=== PATIENT | female | born 1970 | race Caucasian/White ===

== ENCOUNTER 2022-07-15 23:42 | Inpatient (IN) | payer OTHER, SELFPAY ==
[2022-07-15 23:53] VITALS: BP 138/74; BP 148/96; PULSE 79; PULSE 95; RESP 18; TEMP 36.8; O2SAT 96; O2SAT 97; BMI 46.6
--- NOTE | 2022-07-16 00:04 | ED_ITS ---
HPI - Psych General Chief Complaint: Psychiatric Symptoms Stated Complaint: si Source: patient Mode of arrival: EMS Limitations: no limitations History of Present Illness HPI Narrative: Patient with history of PTSD cocaine use, depression feeling suicidal with history of self-injurious behavior feeling worthlessness patient is homeless says too much going on in her life and does not want to live anymore Related Data Allergies Allergy/AdvReac Type Severity Reaction Status Date / Time Penicillins AdvReac Hives Verified 07/15/22 23:52 Review of Systems Review of Systems: Yes all other systems are reviewed and are negative [facility] Social History Social History Advance Directives: No Physical Exam Vital Signs: Vital Signs: Last Vital Signs Temp 98.2 F 07/15/22 23:53 Pulse 79 07/15/22 23:53 Resp 18 07/15/22 23:53 BP 138/74 07/15/22 23:53 Pulse Ox 97 07/15/22 23:53 O2 Del Method 07/15/22 23:53 BMI result Body Mass Index 46.6 Appearance: Alert. Oriented X3. No acute distress. Eyes: PERRLA, No Nystagmus ENT: Pharynx normal. Oral Mucosa moist Neck: Normal inspection. Neck supple. CVS: Normal heart rate and rhythm. Pulses normal. Respiratory: No respiratory distress. Equal air entry bilateral, no wheezing/rales/rhonchi Abdomen: Soft and nontender. Bowel sounds are present, no mass palpable, no CVA tenderness Skin: Skin warm and dry. Normal skin color. Normal skin turgor. psych: Depressed mood no active plan, no delusions no hallucinations Extremities: No lower extremity edema. No calf tenderness, No cerebellar signs , cranial nerves II-XII intact MDM - Psych Differential Diagnosis Differential diagnosis: Likely suicidal ideation, bipolar disorder and depressio n Lab Data Attestation: I reviewed the patient's lab results. Result diagrams: 07/16/22 00:21 07/16/22 00:21 Labs: Lab Results 07/16/22 07/16/22 07/16/22 Range/Units 00:21 00:21 00:21 WBC 9.8 (4.8-10.8) X10*3/uL RBC 4.36 (4.20-5.50) X10*6/uL Hgb 11.4 L (12.0-16.0) g/dl Hct 36.0 L (37.0-47.0) % MCV 82.6 (80.0-98.0) fL MCH 26.1 L (27.0-33.0) pg MCHC 31.7 (31.0-35.0) g/dl RDW 14.3 (11.0-16.0) % Plt Count 430 H (160-400) X10*3/uL MPV 10.1 (9.4-12.3) fL Immature Gran % (Auto) 0.2 (0.0-0.4) % Neut % (Auto) 56.3 (45-73) % Lymph % (Auto) 34.9 (20-40) % [place] % (Auto) 7.2 (2-11) % Eos % (Auto) 1.1 (0-4) % Baso % (Auto) 0.3 (0-2) % Lymph # (Auto) 3.4 (1.2-4.9) X10*3/uL [place] # (Auto) 0.7 (0.1-1.2) X10*3/uL Eos # (Auto) 0.1 (0.0-0.4) X10*3/uL Baso # (Auto) 0.0 (0.0-0.2) X10*3/uL Abs Immat Gran (auto) 0.02 (0.00-0.03) X10*3/uL Absolute Neuts (auto) 5.5 (2.0-8.3) x10*3/uL Absolute Nucleated RBC 0.000 (0.0-0.012) X10*3/uL Nucleated RBC % (auto) 0.0 (0.0-0.2) /100WBC Sodium 137 (135-145) mmol/L Potassium 3.9 (3.3-5.1) mmol/L Chloride 104 (96-108) mmol/L Carbon Dioxide 25 (22-29) mmol/L Anion Gap 12 (12-20) BUN 16 (9-16) mg/dL Creatinine 0.76 (0.5-1.4) mg/dL Estim Creat Clear Calc 117.6 Estimated GFR > 60 Random Glucose 88 (60-115) mg/dL Calcium 9.9 (8.4-10.2) mg/dL Total Bilirubin 0.4 (0.0-1.0) mg/dL AST 14 (5-31) U/L ALT 12 (0-31) U/L Alkaline Phosphatase 114 (39-117) U/L Total Protein 6.8 (6.5-8.0) g/dL Albumin 4.0 (3.5-5.0) g/dL Urine Color Yellow Urine Appearance Clear Urine pH 6.0 (5.0-9.0) Ur Specific [place] 1.025 (1.005-1.025) Urine Protein Negative (Neg-Trace) mg/dL Urine Glucose (UA) Negative (Negative) mg/dL Urine Ketones Negative (Negative) mg/dL Urine Blood Negative (Negative) Urine Nitrite Negative (Negative) Ur Leukocyte Esterase Negative (Negative) Urine Opiates Screen (Not Detect) Urine Fentanyl Screen (Not Detect) Ur Barbiturates Screen (Not Detect) Ur Phencyclidine Scrn (Not Detect) Ur Amphetamines Screen (Not Detect) U Benzodiazepines Scrn (Not Detect) Urine Cocaine Screen (Not Detect) U Marijuana (THC) Screen (Not Detect) 07/16/22 Range/Units 00:21 WBC (4.8-10.8) X10*3/uL RBC (4.20-5.50) X10*6/uL Hgb (12.0-16.0) g/dl Hct (37.0-47.0) % MCV (80.0-98.0) fL MCH (27.0-33.0) pg MCHC (31.0-35.0) g/dl RDW (11.0-16.0) % Plt Count (160-400) X10*3/uL MPV (9.4-12.3) fL Immature Gran % (Auto) (0.0-0.4) % Neut % (Auto) (45-73) % Lymph % (Auto) (20-40) % [place] % (Auto) (2-11) % Eos % (Auto) (0-4) % Baso % (Auto) (0-2) % Lymph # (Auto) (1.2-4.9) X10*3/uL [place] # (Auto) (0.1-1.2) X10*3/uL Eos # (Auto) (0.0-0.4) X10*3/uL Baso # (Auto) (0.0-0.2) X10*3/uL Abs Immat Gran (auto) (0.00-0.03) X10*3/uL Absolute Neuts (auto) (2.0-8.3) x10*3/uL Absolute Nucleated RBC (0.0-0.012) X10*3/uL Nucleated RBC % (auto) (0.0-0.2) /100WBC Sodium (135-145) mmol/L Potassium (3.3-5.1) mmol/L Chloride (96-108) mmol/L Carbon Dioxide (22-29) mmol/L Anion Gap (12-20) BUN (9-16) mg/dL Creatinine (0.5-1.4) mg/dL Estim Creat Clear Calc Estimated GFR Random Glucose (60-115) mg/dL Calcium (8.4-10.2) mg/dL Total Bilirubin (0.0-1.0) mg/dL AST (5-31) U/L ALT (0-31) U/L Alkaline Phosphatase (39-117) U/L Total Protein (6.5-8.0) g/dL Albumin (3.5-5.0) g/dL Urine Color Urine Appearance Urine pH (5.0-9.0) Ur Specific [place] (1.005-1.025) Urine Protein (Neg-Trace) mg/dL Urine Glucose (UA) (Negative) mg/dL Urine Ketones (Negative) mg/dL Urine Blood (Negative) Urine Nitrite (Negative) Ur Leukocyte Esterase (Negative) Urine Opiates Screen Not Detected (Not Detect) Urine Fentanyl Screen Not Detected (Not Detect) Ur Barbiturates Screen Not Detected (Not Detect) Ur Phencyclidine Scrn Not Detected (Not Detect) Ur Amphetamines Screen Not Detected (Not Detect) U Benzodiazepines Scrn Not Detected (Not Detect) Urine Cocaine Screen POSITIVE H (Not Detect) U Marijuana (THC) Screen Not Detected (Not Detect) Discharge Plan Discharge Clinical Impression: Suicidal ideation, Bipolar disorder Patient Disposition: Still a Patient
--- NOTE | 2022-07-16 00:10 | PC.NURSE ---
pt got change into hospital attire ,by this pct .
[2022-07-16 00:27] LABS: Basophils Percent Auto 0.3 % (0-2); Eosinophils Absolute Auto 0.1 X10*3/uL (0.0-0.4); Eosinophils Percent Auto 1.1 % (0-4); Hemoglobin 11.4 g/dl (12.0-16.0); Imm Gran Abs Auto 0.02 X10*3/uL (0.00-0.03); Imm Gran Pct Auto 0.2 % (0.0-0.4); Lymphocytes Absolute Auto 3.4 X10*3/uL (1.2-4.9); Lymphocytes Percent Auto 34.9 % (20-40); Mean Corpuscular HGB Conc 31.7 g/dl (31.0-35.0); Mean Corpuscular Hemoglobin 26.1 pg (27.0-33.0); Mean Corpuscular Volume 82.6 fL (80.0-98.0); Mean Platelet Volume 10.1 fL (9.4-12.3); Monocytes Absolute Auto 0.7 X10*3/uL (0.1-1.2); Monocytes Percent Auto 7.2 % (2-11); Neutrophils Absolute Auto 5.5 x10*3/uL (2.0-8.3); Neutrophils Percent Auto 56.3 % (45-73); Platelet Count 430 X10*3/uL (160-400); Red Blood Count 4.36 X10*6/uL (4.20-5.50); Red Cell Distribution Width 14.3 % (11.0-16.0); White Blood Count 9.8 X10*3/uL (4.8-10.8)
[2022-07-16 00:28] LABS: MANUAL DIFF FLAG NO
[2022-07-16 00:29] LABS: Appearance Urine Clear; Color Urine Yellow; Glucose Urine UA Negative (Negative); Leukocyte Esterase Urine Negative (Negative); Nitrite Urine Negative (Negative); Specific Gravity - Urine 1.025 (1.005-1.025); Urine Blood Negative (Negative); Urine Ketones Negative (Negative); Urine Protein Negative (Neg-Trace)
[2022-07-16 00:38] LABS: Amphetamine Screen Urine Not Detected (Not Detect); Barbiturates, Urine Not Detected (Not Detect); Benzodiazepines Screen Urine Not Detected (Not Detect); Cannabinoid Screen Urine Not Detected (Not Detect); Cocaine Screen Urine POSITIVE (Not Detect); Fentanyl, urine Not Detected (Not Detect); Opiate Screen Urine Not Detected (Not Detect); Phencyclidine Screen Urine Not Detected (Not Detect)
[2022-07-16 00:47] LABS: Alanine Aminotransferase 12 U/L (0-31); Alkaline Phosphatase 114 U/L (39-117); Anion Gap 12 (12-20); Aspartate Amino Transferase 14 U/L (5-31); Bilirubin Total 0.4 mg/dL (0.0-1.0); Blood Urea Nitrogen 16 mg/dL (9-16); Calcium 9.9 mg/dL (8.4-10.2); Carbon Dioxide 25 mmol/L (22-29); Chloride 104 mmol/L (96-108); Creatinine Clr Calc Pharmacy 117.6; Estimated Glomerular Filt Rate > 60; Glucose Random 88 mg/dL (60-115); Potassium 3.9 mmol/L (3.3-5.1); Sodium 137 mmol/L (135-145); Total Protein 6.8 g/dL (6.5-8.0)
[2022-07-16 01:04] LABS: Influenza A PCR NEGATIVE (Negative); Influenza B PCR NEGATIVE (Negative); Resp Syncy Virus RNA Qual PCR NEGATIVE (Negative); SARS COV2 PCR INHOUSE NEGATIVE (Negative)
[2022-07-16 02:43] VITALS: BP 143/69; PULSE 77; RESP 16; TEMP 36.1; O2SAT 98
[2022-07-16] MEDS: Ibuprofen 400 MG TABLET PO (03:52)
[2022-07-16] MEDS: Melatonin 3 MG TABLET 6 MG PO (03:53)
--- NOTE | 2022-07-16 08:45 | PHA.MEDREC ---
Pharmacy Consult ? Medication Reconciliation Pharmacy has completed the medication reconciliation. Completed by RN reviewed by pharmacy Fili
--- NOTE | 2022-07-16 09:00 | ECG_ITS ---
Test Reason : med clearance Blood Pressure : / mmHG Vent. Rate : 066 BPM Atrial Rate : 066 BPM P-R Int : 146 ms QRS Dur : 096 ms QT Int : 420 ms P-R-T Axes : 062 -07 -18 degrees QTc Int : 440 ms Normal sinus rhythm Minimal voltage criteria for LVH, may be normal variant ( Diego product ) T wave abnormality, consider anterior ischemia Abnormal ECG No previous ECGs available Referred By: Devaughn Black Electronically Signed By:Jorge Chavez
[2022-07-16 09:59] VITALS: BP 105/74; PULSE 88; RESP 18; TEMP 36.9; O2SAT 96
[2022-07-16 10:15] VITALS: BP 141/67; PULSE 66; RESP 14; O2SAT 98
--- NOTE | 2022-07-16 15:31 | PC.NURSE ---
Wai at bedside to take pt to [id number]
[2022-07-16 16:49] VITALS: BP 127/65; PULSE 65; TEMP 36.6
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
[2022-07-17 06:00] VITALS: BP 97/53; PULSE 75; RESP 14; TEMP 36.6; O2SAT 97
[2022-07-17] MEDS: DULoxetine HCl 60 MG CAPSULE.DR PO (08:18)
[2022-07-17] MEDS: Cholecalciferol (Vitamin D3) 25 MCG TABLET PO (08:18)
[2022-07-17] MEDS: estradioL 0.5 MG TABLET PO (08:18)
[2022-07-17] MEDS: polyethylene glycoL 3350 17 GM POWD.PACK PO (08:21)
[2022-07-17 08:28] LABS: Estimated Average Glucose 111 mg/dL; Hemoglobin A1c % 5.5 %
[2022-07-17 09:00] LABS: Cholesterol 204 mg/dL; Free T4 (Free Thyroxine) 0.98 ng/dL (0.71-1.85); HDL Cholesterol 42 mg/dL; LDL Cholesterol Calculated 114 mg/dl; Magnesium 2.1 mg/dL (1.6-2.6); Triglycerides 242 mg/dL
[2022-07-17 09:13] LABS: Folate 4.9 ng/mL (> or = 4.0); Vitamin B12 233 pg/mL (200-900)
[2022-07-17 18:00] VITALS: BP 130/77; PULSE 79; RESP 18; TEMP 36.6; O2SAT 97
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
[2022-07-17] MEDS: Acetaminophen 325 MG TABLET 650 MG PO (20:13)
[2022-07-17] MEDS: traZODone HCL 50 MG TABLET PO (22:11)
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
[2022-07-18 08:48] VITALS: BP 124/71; PULSE 76; RESP 18; TEMP 37.1; O2SAT 96
[2022-07-18] MEDS: estradioL 0.5 MG TABLET PO (08:49)
[2022-07-18] MEDS: Cyanocobalamin (Vitamin B-12) 100 MCG TABLET PO (08:49)
[2022-07-18] MEDS: Omeprazole 20 MG CAPSULE.DR PO (08:49)
[2022-07-18] MEDS: Acetaminophen 325 MG TABLET 650 MG PO ×2 (08:49→18:51)
[2022-07-18] MEDS: buPROPion HCl XL 300 MG TAB.ER.24H PO (08:49)
[2022-07-18] MEDS: Loratadine 10 MG TABLET PO (08:50)
[2022-07-18] MEDS: Cholecalciferol (Vitamin D3) 25 MCG TABLET PO (08:50)
[2022-07-18] MEDS: DULoxetine HCl 60 MG CAPSULE.DR PO (08:50)
[2022-07-18] MEDS: Multivitamin TABLET 1 TAB PO (08:54)
[2022-07-18] MEDS: polyethylene glycoL 3350 17 GM POWD.PACK PO (09:00)
[2022-07-18 18:38] VITALS: BP 116/66; PULSE 84; RESP 20; TEMP 36.9; O2SAT 97
[2022-07-19] MEDS: hydrOXYzine HCL 50 MG TABLET PO ×2 (00:19→22:14)
[2022-07-19 06:00] VITALS: BP 116/65; PULSE 82; RESP 16
--- NOTE | 2022-07-19 06:39 | P.PNPSI_ITS ---
Subjective Subjective Date of Service: 07/18/22 Reason For Visit: si, bipolar d/o Subjective Notes: Conditional Voluntary Healthcare Proxy: No Guardianship: No Medical Problems Affecting Mental Status: No Interim History: Pt not willing to engage much, says didn't sleep so excessively tired reports trazodone didn't work was on more in past but when discussed pt said already dizzy/light headed I am concerned about further increase, pt reported that hydroxzyine worked in past Medication Compliance: Yes Side effects from medications: Yes (dizzy light headed) Attending Groups: Intermittent Review of Systems Acute medical concerns: No Review of Systems: fatigue, dizziness/lightheaded Mental Status Exam Mental Status Exam Narrative: lying in bed, drowsy, minimally cooperative Patient Appearance: Fatigued Patient Orientation: Person, Place and Situation Level of Consciousness: Drowsy Patient Behavior: Passive and Isolative Mood Description: Calm Affect Description: Apathetic Patient Cognition Impaired: No Ability to Follow Directions: Fair Speech Pattern: Mumbled Hallucinations: None Delusions: Not Present Thought Process: Intact Thought Content: positive for Goal Oriented Depressive Symptoms: Difficulty Sleeping and Increased Fatigue Abnormal Motor Activity Signs and Symptoms: Psychomotor Retardation Judgement: Fair Diagnostics Vital Signs (24Hr): Vital Signs - 24 hr 07/18/22 08:48 07/18/22 18:38 Temperature 98.8 F 98.5 F Pulse Rate 76 84 Respiratory Rate 18 20 Blood Pressure 124/71 116/66 Pulse Oximetry 96 97 Oxygen Delivery Method Room Air Room Air BMI result Body Mass Index 46.6 Labs Results: 07/16/22 00:21 07/16/22 00:21 Labs: Laboratory Results - last 48 hr 07/17/22 07/17/22 07/17/22 08:08 08:08 08:08 Estimat Average Glucose 111 Hemoglobin A1c % 5.5 Magnesium 2.1 Triglycerides 242 Cholesterol 204 LDL Cholesterol, Calc 114 HDL Cholesterol 42 Vitamin B12 233 Folate 4.9 TSH 3.30 Free T4 0.98 Medications Medications Current Medications Acetaminophen (Acetaminophen 325 Mg Tablet) 650 mg PO Q6H PRN PRN Reason: Headache/Pain Mild Scale (1-3) Last Admin: 07/18/22 18:51 Dose: 650 mg Al Hydroxide/Mg Hydroxide (Magnesium Hydrox/Alum Hydrox 30 Ml Oral.Susp) 30 ml PO Q6H PRN PRN Reason: Heartburn/Nausea Bupropion HCl (Bupropion Hcl Xl 300 Mg Tab.Er.24h) 300 mg PO DAILY [facility] Last Admin: 07/18/22 08:49 Dose: 300 mg Cyanocobalamin (Cyanocobalamin (Vitamin B-12) 100 Mcg Tablet) 100 mcg PO DAILY [facility] Last Admin: 07/18/22 08:49 Dose: 100 mcg Duloxetine HCl (Duloxetine Hcl 60 Mg Capsule.) 60 mg PO DAILY [facility] Last Admin: 07/18/22 08:50 Dose: 60 mg Estradiol (Estradiol 0.5 Mg Tablet) 0.5 mg PO DAILY [facility] Last Admin: 07/18/22 08:49 Dose: 0.5 mg Hydroxyzine HCl (Hydroxyzine Hcl 25 Mg Tablet) 25 mg PO Q6H PRN PRN Reason: Anxiety Hydroxyzine HCl (Hydroxyzine Hcl 50 Mg Tablet) 50 mg PO BEDTIME MRX1 PRN PRN Reason: Insomnia Last Admin: 07/19/22 00:19 Dose: 50 mg Loratadine (Loratadine 10 Mg Tablet) 10 mg PO DAILY [facility] Last Admin: 07/18/22 08:50 Dose: 10 mg Magnesium Hydroxide (Milk Of Magnesia 30 Ml Oral.Susp) 30 ml PO DAILY PRN PRN Reason: Constipation Multivitamins/Vitamin C (Multivitamin Tablet) 1 tab PO DAILY [facility] Last Admin: 07/18/22 08:54 Dose: 1 tab Omeprazole (Omeprazole 20 Mg Capsule.) 20 mg PO DAILY@0630 [facility] Last Admin: 07/18/22 08:49 Dose: 20 mg Pharmacy Consult (Consult Rx Perform Med Rec) 1 each MISCELLANE ONCE PRN PRN Reason: Consult order Polyethylene Glycol (Polyethylene Glycol 3350 17 Gm Powd.Pack) 17 gm PO DAILY [facility] Last Admin: 07/18/22 09:00 Dose: 17 gm Vitamin D (Cholecalciferol (Vitamin D3) 25 Mcg Tablet) 25 mcg PO DAILY [facility] Last Admin: 07/18/22 08:50 Dose: 25 mcg Allergies Allergies Allergy/AdvReac Type Severity Reaction Status Date / Time Penicillins AdvReac Hives Verified 07/15/22 23:52 Assessment & Plan Assessment & Plan (1) PTSD (post-traumatic stress disorder): Status: Acute Code(s): F43.10 - Post-traumatic stress disorder, unspecified Assessment and Plan: changed trazodone to hydroxyzine for sleep 07/18 (2) Stimulant use disorder: Status: Acute Code(s): F15.90 - Other stimulant use, unspecified, uncomplicated Assessment and Plan: could be fatigued from this as well (3) Alcohol use disorder: Status: Acute Code(s): F19.90 - Other psychoactive substance use, unspecified, uncomplicated Assessment and Plan: awaiting placement Plan 52 yo female, reports stopping meds, relapse with SIBS and increasing SI. Plan: Review of meds, regime restored, allow to take effect. Pt reports, by history this regime as worked well. Collateral contact Diagnostics as needed Pt reports she is not intersted at this time in residential level of care. Continue to discuss. I spent minutes with the patient and/or on the patient floor today, greater than?50% of which was spent counseling/coordinating care. Patient educated on: medication risk/benefits Informed Consent: understands Reason for contiued inpatient stay Substantial Risk for: harm to self and rapid decompensation
[2022-07-19] MEDS: Omeprazole 20 MG CAPSULE.DR PO (09:01)
[2022-07-19] MEDS: buPROPion HCl XL 300 MG TAB.ER.24H PO (09:01)
[2022-07-19] MEDS: estradioL 0.5 MG TABLET PO (09:01)
[2022-07-19] MEDS: Multivitamin TABLET 1 TAB PO (09:01)
[2022-07-19] MEDS: DULoxetine HCl 60 MG CAPSULE.DR PO (09:01)
[2022-07-19] MEDS: polyethylene glycoL 3350 17 GM POWD.PACK PO (09:01)
[2022-07-19] MEDS: Loratadine 10 MG TABLET PO (09:01)
[2022-07-19] MEDS: Cholecalciferol (Vitamin D3) 25 MCG TABLET PO (09:01)
[2022-07-19] MEDS: Cyanocobalamin (Vitamin B-12) 100 MCG TABLET PO (09:01)
--- NOTE | 2022-07-19 11:05 | P.PNPSI_ITS ---
Subjective Subjective Date of Service: 07/19/22 Reason For Visit: si, bipolar d/o Subjective Notes: Conditional Voluntary Healthcare Proxy: No Guardianship: No Medical Problems Affecting Mental Status: No Interim History: Not very engaged in treatment, she reports due to fatigue, not sleeping and .. dizziness? , still continues but less off trazodone. Denies drug/etoh cravings or current si. Medication Compliance: Yes Side effects from medications: Yes (dizziness) Attending Groups: No Review of Systems Acute medical concerns: No unless dizziness/fatigue are medical concern but not clear Review of Systems: dizziness ,fatigue Mental Status Exam Mental Status Exam Patient Appearance: Disheveled (mildly) and Appropriate Patient Orientation: Person, Place, Time and Situation Level of Consciousness: Awake, Appropriate and Alert Patient Behavior: Cooperative, Avoidant and Isolative Mood Description: Anxious Affect Description: Appropriate Patient Cognition Impaired: No Ability to Follow Directions: Fair Speech Pattern: Clear Hallucinations: None Delusions: Not Present Thought Process: Intact and Goal Oriented Thought Content: positive for [place] Depressive Symptoms: Muscle Tension, Difficulty Sleeping, Increased Fatigue and Loss of Energy Judgement: Fair Diagnostics Vital Signs (24Hr): Vital Signs - 24 hr 07/18/22 18:38 07/19/22 06:00 Temperature 98.5 F Pulse Rate 84 82 Respiratory Rate 20 16 Blood Pressure 116/66 116/65 Pulse Oximetry 97 Oxygen Delivery Method Room Air BMI result Body Mass Index 46.6 Labs Results: 07/16/22 00:21 07/16/22 00:21 Medications Medications Current Medications Acetaminophen (Acetaminophen 325 Mg Tablet) 650 mg PO Q6H PRN PRN Reason: Headache/Pain Mild Scale (1-3) Last Admin: 07/18/22 18:51 Dose: 650 mg Al Hydroxide/Mg Hydroxide (Magnesium Hydrox/Alum Hydrox 30 Ml Oral.Susp) 30 ml PO Q6H PRN PRN Reason: Heartburn/Nausea Bupropion HCl (Bupropion Hcl Xl 300 Mg Tab.Er.24h) 300 mg PO DAILY [facility] Last Admin: 07/19/22 09:01 Dose: 300 mg Cyanocobalamin (Cyanocobalamin (Vitamin B-12) 100 Mcg Tablet) 100 mcg PO DAILY [facility] Last Admin: 07/19/22 09:01 Dose: 100 mcg Duloxetine HCl (Duloxetine Hcl 60 Mg Capsule.Dr) 60 mg PO DAILY [facility] Last Admin: 07/19/22 09:01 Dose: 60 mg Estradiol (Estradiol 0.5 Mg Tablet) 0.5 mg PO DAILY [facility] Last Admin: 07/19/22 09:01 Dose: 0.5 mg Hydroxyzine HCl (Hydroxyzine Hcl 25 Mg Tablet) 25 mg PO Q6H PRN PRN Reason: Anxiety Hydroxyzine HCl (Hydroxyzine Hcl 50 Mg Tablet) 50 mg PO BEDTIME MRX1 PRN PRN Reason: Insomnia Last Admin: 07/19/22 00:19 Dose: 50 mg Loratadine (Loratadine 10 Mg Tablet) 10 mg PO DAILY [facility] Last Admin: 07/19/22 09:01 Dose: 10 mg Magnesium Hydroxide (Milk Of Magnesia 30 Ml Oral.Susp) 30 ml PO DAILY PRN PRN Reason: Constipation Multivitamins/Vitamin C (Multivitamin Tablet) 1 tab PO DAILY [facility] Last Admin: 07/19/22 09:01 Dose: 1 tab Omeprazole (Omeprazole 20 Mg Capsule.Dr) 20 mg PO DAILY@0630 [facility] Last Admin: 07/19/22 09:01 Dose: 20 mg Pharmacy Consult (Consult Rx Perform Med Rec) 1 each MISCELLANE ONCE PRN PRN Reason: Consult order Polyethylene Glycol (Polyethylene Glycol 3350 17 Gm Powd.Pack) 17 gm PO DAILY [facility] Last Admin: 07/19/22 09:01 Dose: 17 gm Vitamin D (Cholecalciferol (Vitamin D3) 25 Mcg Tablet) 25 mcg PO DAILY [facility] Last Admin: 07/19/22 09:01 Dose: 25 mcg Allergies Allergies Allergy/AdvReac Type Severity Reaction Status Date / Time Penicillins AdvReac Hives Verified 07/15/22 23:52 Assessment & Plan Assessment & Plan (1) PTSD (post-traumatic stress disorder): Status: Acute Code(s): F43.10 - Post-traumatic stress disorder, unspecified Assessment and Plan: changed trazodone to hydroxyzine for sleep 07/18 07/19 adding melatonin (2) Stimulant use disorder: Status: Acute Code(s): F15.90 - Other stimulant use, unspecified, uncomplicated Assessment and Plan: could be fatigued from this as well (3) Alcohol use disorder: Status: Acute Code(s): F19.90 - Other psychoactive substance use, unspecified, uncomplicated Assessment and Plan: awaiting placement Plan 52 yo female, reports stopping meds, relapse with SIBS and increasing SI. Plan: Review of meds, regime restored, allow to take effect. Pt reports, by history this regime as worked well. Collateral contact Diagnostics as needed Pt reports she is not intersted at this time in residential level of care. Continue to discuss. I spent minutes with the patient and/or on the patient floor today, greater than?50% of which was spent counseling/coordinating care. Patient educated on: diagnosis and medication risk/benefits Informed Consent: further education needed Reason for contiued inpatient stay Substantial Risk for: rapid decompensation
[2022-07-19 18:00] VITALS: BP 138/84; PULSE 90; TEMP 36.7; O2SAT 95
[2022-07-19] MEDS: Acetaminophen 325 MG TABLET 650 MG PO (20:18)
[2022-07-19] MEDS: Ibuprofen 600 MG TABLET PO (22:14)
[2022-07-19] MEDS: Melatonin 3 MG TABLET PO (22:14)
[2022-07-20] MEDS: Omeprazole 20 MG CAPSULE.DR PO (06:30)
[2022-07-20 08:45] VITALS: BP 115/55; PULSE 71; RESP 16; TEMP 37.3; O2SAT 96
[2022-07-20] MEDS: Cyanocobalamin (Vitamin B-12) 100 MCG TABLET PO (09:00)
[2022-07-20] MEDS: buPROPion HCl XL 300 MG TAB.ER.24H PO (09:00)
[2022-07-20] MEDS: Cholecalciferol (Vitamin D3) 25 MCG TABLET PO (09:00)
[2022-07-20] MEDS: DULoxetine HCl 60 MG CAPSULE.DR PO (09:00)
[2022-07-20] MEDS: estradioL 0.5 MG TABLET PO (09:00)
[2022-07-20] MEDS: Multivitamin TABLET 1 TAB PO (09:01)
[2022-07-20] MEDS: Loratadine 10 MG TABLET PO (09:01)
[2022-07-20 15:45] VITALS: BP 124/71; PULSE 87; TEMP 36.3
--- NOTE | 2022-07-20 18:12 | HO.PSYCHPN ---
Subjective Subjective Date of Service: 07/20/22 Reason For Visit: si, bipolar d/o Subjective Notes: Conditional Voluntary Healthcare Proxy: No Guardianship: No Medical Problems Affecting Mental Status: No Interim History: Some improvement although continues with vertigo. Review of medications, target sx, SE. Hydroxyzine at hs decreased as pt has hx of unsteadiness but finds this to be helpful with her sleep. Asks about residential treatment post discharge, [facility] Medication Compliance: Yes Side effects from medications: Yes (dizziness with hydroxyzine, yet reports efficacy) Attending Groups: Intermittent Review of Systems Acute medical concerns: No Medical Review of Systems: unchanged Mental Status Exam Mental Status Exam Patient Appearance: Appropriate Patient Orientation: Person, Place, Time and Situation Level of Consciousness: Alert Patient Behavior: Talkative, Cooperative and Good Eye Contact Mood Description: Labile Affect Description: Labile Patient Cognition Impaired: No Ability to Follow Directions: Good Speech Pattern: Spontaneous Speech Memory Description: Intact Hallucinations: None Delusions: Not Present Thought Process: Rumination and Goal Oriented Thought Content: positive for Circumstantial Judgement: Fair Diagnostics Vital Signs (24Hr): Vital Signs - 24 hr 07/20/22 08:45 Temperature 99.1 F Pulse Rate 71 Respiratory Rate 16 Blood Pressure 115/55 L Pulse Oximetry 96 Oxygen Delivery Method Room Air BMI result Body Mass Index 46.6 Labs Results: 07/16/22 00:21 07/16/22 00:21 Medications Medications Current Medications Acetaminophen (Acetaminophen 325 Mg Tablet) 650 mg PO Q6H PRN PRN Reason: Headache/Pain Mild Scale (1-3) Last Admin: 07/19/22 20:18 Dose: 650 mg Al Hydroxide/Mg Hydroxide (Magnesium Hydrox/Alum Hydrox 30 Ml Oral.Susp) 30 ml PO Q6H PRN PRN Reason: Heartburn/Nausea Bupropion HCl (Bupropion Hcl Xl 300 Mg Tab.Er.24h) 300 mg PO DAILY [facility] Last Admin: 07/20/22 09:00 Dose: 300 mg Cyanocobalamin (Cyanocobalamin (Vitamin B-12) 100 Mcg Tablet) 100 mcg PO DAILY [facility] Last Admin: 07/20/22 09:00 Dose: 100 mcg Duloxetine HCl (Duloxetine Hcl 60 Mg Capsule.Dr) 60 mg PO DAILY [facility] Last Admin: 07/20/22 09:00 Dose: 60 mg Estradiol (Estradiol 0.5 Mg Tablet) 0.5 mg PO DAILY [facility] Last Admin: 07/20/22 09:00 Dose: 0.5 mg Hydroxyzine HCl (Hydroxyzine Hcl 25 Mg Tablet) 25 mg PO Q6H PRN PRN Reason: Anxiety Hydroxyzine HCl (Hydroxyzine Hcl 25 Mg Tablet) 25 mg PO BEDTIME MRX1 PRN PRN Reason: Insomnia Ibuprofen (Ibuprofen 600 Mg Tablet) 600 mg PO Q6H PRN PRN Reason: Pain, Moderate (Pain Scale 4-6 Last Admin: 07/19/22 22:14 Dose: 600 mg Loratadine (Loratadine 10 Mg Tablet) 10 mg PO DAILY [facility] Last Admin: 07/20/22 09:01 Dose: 10 mg Magnesium Hydroxide (Milk Of Magnesia 30 Ml Oral.Susp) 30 ml PO DAILY PRN PRN Reason: Constipation Melatonin (Melatonin 3 Mg Tablet) 3 mg PO BEDTIME MRX1 [facility] Last Admin: 07/19/22 23:01 Dose: Not Given Multivitamins/Vitamin C (Multivitamin Tablet) 1 tab PO DAILY [facility] Last Admin: 07/20/22 09:01 Dose: 1 tab Omeprazole (Omeprazole 20 Mg Capsule.Dr) 20 mg PO DAILY@0630 [facility] Last Admin: 07/20/22 06:30 Dose: 20 mg Pharmacy Consult (Consult Rx Perform Med Rec) 1 each MISCELLANE ONCE PRN PRN Reason: Consult order Polyethylene Glycol (Polyethylene Glycol 3350 17 Gm Powd.Pack) 17 gm PO DAILY [facility] Last Admin: 07/20/22 10:20 Dose: Not Given Vitamin D (Cholecalciferol (Vitamin D3) 25 Mcg Tablet) 25 mcg PO DAILY [facility] Last Admin: 07/20/22 09:00 Dose: 25 mcg Allergies Allergies Allergy/AdvReac Type Severity Reaction Status Date / Time Penicillins AdvReac Hives Verified 07/15/22 23:52 Assessment & Plan Assessment & Plan (1) PTSD (post-traumatic stress disorder): Status: Acute Code(s): F43.10 - Post-traumatic stress disorder, unspecified Assessment and Plan: changed trazodone to hydroxyzine for sleep 07/18 07/19 adding melatonin (2) Stimulant use disorder: Status: Acute Code(s): F15.90 - Other stimulant use, unspecified, uncomplicated Assessment and Plan: could be fatigued from this as well (3) Alcohol use disorder: Status: Acute Code(s): F19.90 - Other psychoactive substance use, unspecified, uncomplicated Assessment and Plan: awaiting placement Plan 52 yo female, reports stopping meds, relapse with SIBS and increasing SI. Plan: Review of meds, regime restored, allow to take effect. Pt reports, by history this regime as worked well. Collateral contact Diagnostics as needed Pt reports she is not intersted at this time in residential level of care. Continue to discuss. 07/20/22: Continue current regime Decrease of HS hydroxyzine from 50 mg to 25 mg as pt has a hx of vertigo, dizziness, but finds it an effective sleep agent. I spent minutes with the patient and/or on the patient floor today, greater than?50% of which was spent counseling/coordinating care. Patient educated on: therapeutic strategies Informed Consent: understands and further education needed Reason for contiued inpatient stay Substantial Risk for: rapid decompensation
[2022-07-20] MEDS: hydrOXYzine HCL 25 MG TABLET PO (23:02)
[2022-07-20] MEDS: Ibuprofen 600 MG TABLET PO (23:02)
[2022-07-20] MEDS: Melatonin 3 MG TABLET PO (23:03)
[2022-07-21] MEDS: Omeprazole 20 MG CAPSULE.DR PO (06:44)
[2022-07-21 09:15] VITALS: BP 126/61; PULSE 84; RESP 18; TEMP 36; O2SAT 93
[2022-07-21] MEDS: Loratadine 10 MG TABLET PO (09:22)
[2022-07-21] MEDS: Cholecalciferol (Vitamin D3) 25 MCG TABLET PO (09:22)
[2022-07-21] MEDS: Multivitamin TABLET 1 TAB PO (09:22)
[2022-07-21] MEDS: Cyanocobalamin (Vitamin B-12) 100 MCG TABLET PO (09:22)
[2022-07-21] MEDS: buPROPion HCl XL 300 MG TAB.ER.24H PO (09:22)
[2022-07-21] MEDS: DULoxetine HCl 60 MG CAPSULE.DR PO (09:22)
[2022-07-21] MEDS: estradioL 0.5 MG TABLET PO (09:22)
[2022-07-21] MEDS: Acetaminophen 325 MG TABLET 650 MG PO (09:53)
[2022-07-21] MEDS: Ibuprofen 600 MG TABLET PO (14:39)
--- NOTE | 2022-07-21 14:49 | PC.NURSE ---
Patient reporting chronic headache, dizziness, nausea since arrival, attributes this to Vistaril- provider notified.
--- NOTE | 2022-07-21 14:50 | P.PNPSI_ITS ---
Subjective Subjective Date of Service: 07/21/22 Reason For Visit: si, bipolar d/o Interim History: Mood is little better; no SI or HI or AVH. Patient says she has been having headache however ibuprofen helping. Discussed withdrawal, substance abuse. Reports trouble falling asleep and agrees to trial of clonidine at bedtime. Feels that hydroxyzine is causing her to be nauseous and asked for to the discontinued to which news writer agreed. Mental Status Exam Mental Status Exam Narrative: Pt is alert and oriented; behavior is cooperative, friendly and calm, lying in bed; patient reports headache but otherwise not in distress; dressed in casual attire with adequate hygiene; mood is described as a little better and affect congruent; eye contact appropriate; Speech is normal rate, volume and prosody and not pressured; no psychomotor agitation/retardation present; thought process is organized and goal directed; Thought content is on tx, getting over withdrawal; otherwise pertinent to relevant topics and without any delusional content, paranoid ideations or grandiosity; denies any SI/HI. There is no evidence of perceptual disturbance. Patients insight and judgment appear intact. Diagnostics Vital Signs (24Hr): Vital Signs - 24 hr 07/20/22 15:45 07/21/22 09:15 Temperature 97.4 F 96.8 F Pulse Rate 87 84 Respiratory Rate 18 Blood Pressure 124/71 126/61 Pulse Oximetry 93 Oxygen Delivery Method Room Air BMI result Body Mass Index 46.6 Labs Results: 07/16/22 00:21 07/16/22 00:21 Medications Medications Current Medications Acetaminophen (Acetaminophen 325 Mg Tablet) 650 mg PO Q6H PRN PRN Reason: Headache/Pain Mild Scale (1-3) Last Admin: 07/21/22 09:53 Dose: 650 mg Al Hydroxide/Mg Hydroxide (Magnesium Hydrox/Alum Hydrox 30 Ml Oral.Susp) 30 ml PO Q6H PRN PRN Reason: Heartburn/Nausea Bupropion HCl (Bupropion Hcl Xl 300 Mg Tab.Er.24h) 300 mg PO DAILY [facility] Last Admin: 07/21/22 09:22 Dose: 300 mg Cyanocobalamin (Cyanocobalamin (Vitamin B-12) 100 Mcg Tablet) 100 mcg PO DAILY [facility] Last Admin: 07/21/22 09:22 Dose: 100 mcg Duloxetine HCl (Duloxetine Hcl 60 Mg Capsule.Dr) 60 mg PO DAILY [facility] Last Admin: 07/21/22 09:22 Dose: 60 mg Estradiol (Estradiol 0.5 Mg Tablet) 0.5 mg PO DAILY [facility] Last Admin: 07/21/22 09:22 Dose: 0.5 mg Ibuprofen (Ibuprofen 600 Mg Tablet) 600 mg PO Q6H PRN PRN Reason: Pain, Moderate (Pain Scale 4-6 Last Admin: 07/21/22 14:39 Dose: 600 mg Loratadine (Loratadine 10 Mg Tablet) 10 mg PO DAILY [facility] Last Admin: 07/21/22 09:22 Dose: 10 mg Magnesium Hydroxide (Milk Of Magnesia 30 Ml Oral.Susp) 30 ml PO DAILY PRN PRN Reason: Constipation Melatonin (Melatonin 3 Mg Tablet) 3 mg PO BEDTIME MRX1 [facility] Last Admin: 07/21/22 06:32 Dose: Not Given Multivitamins/Vitamin C (Multivitamin Tablet) 1 tab PO DAILY [facility] Last Admin: 07/21/22 09:22 Dose: 1 tab Omeprazole (Omeprazole 20 Mg Capsule.Dr) 20 mg PO DAILY@0630 [facility] Last Admin: 07/21/22 06:44 Dose: 20 mg Pharmacy Consult (Consult Rx Perform Med Rec) 1 each MISCELLANE ONCE PRN PRN Reason: Consult order Polyethylene Glycol (Polyethylene Glycol 3350 17 Gm Powd.Pack) 17 gm PO DAILY [facility] Last Admin: 07/21/22 09:44 Dose: Not Given Vitamin D (Cholecalciferol (Vitamin D3) 25 Mcg Tablet) 25 mcg PO DAILY [facility] Last Admin: 07/21/22 09:22 Dose: 25 mcg Allergies Allergies Allergy/AdvReac Type Severity Reaction Status Date / Time Penicillins AdvReac Hives Verified 07/15/22 23:52 Assessment & Plan Assessment & Plan (1) PTSD (post-traumatic stress disorder): Status: Acute Code(s): F43.10 - Post-traumatic stress disorder, unspecified Assessment and Plan: changed trazodone to hydroxyzine for sleep 07/18 12 adding melatonin (2) Stimulant use disorder: Status: Acute Code(s): F15.90 - Other stimulant use, unspecified, uncomplicated Assessment and Plan: could be fatigued from this as well (3) Alcohol use disorder: Status: Acute Code(s): F19.90 - Other psychoactive substance use, unspecified, uncomplicated Assessment and Plan: awaiting placement Plan 52 yo female, reports stopping meds, relapse with SIBS and increasing SI. Plan: Review of meds, regime restored, allow to take effect. Pt reports, by history this regime as worked well. Collateral contact Diagnostics as needed Pt reports she is not intersted at this time in residential level of care. Continue to discuss. 07/20/22: Continue current regime Decrease of HS hydroxyzine from 50 mg to 25 mg as pt has a hx of vertigo, dizziness, but finds it an effective sleep agent. 07/21 Discontinue hydroxyzine: Feels it is making her nauseous Start clonidine 0.1 mg q.h.s. for trouble sleeping. Increased melatonin to 6 mg at patient's request I spent minutes with the patient and/or on the patient floor today, greater than?50% of which was spent counseling/coordinating care. Patient educated on: diagnosis, medication risk/benefits, substance abuse and therapeutic strategies Informed Consent: understands Reason for contiued inpatient stay Substantial Risk for: rapid decompensation
--- NOTE | 2022-07-21 15:08 | PC.NURSE ---
Patient requesting cogentin: Dr. Dumont notified, and aware that patient declined Paliperidone this morning. Report given to oncoming RN.
[2022-07-21 18:00] VITALS: BP 152/79; PULSE 85; RESP 18; TEMP 36.8; O2SAT 98
[2022-07-21] MEDS: Melatonin 3 MG TABLET 6 MG PO (20:39)
[2022-07-21] MEDS: cloNIDine HCL 0.1 MG TABLET PO (20:39)
[2022-07-22] MEDS: DULoxetine HCl 60 MG CAPSULE.DR PO (09:34)
[2022-07-22] MEDS: Loratadine 10 MG TABLET PO (09:34)
[2022-07-22] MEDS: Multivitamin TABLET 1 TAB PO (09:34)
[2022-07-22] MEDS: buPROPion HCl XL 300 MG TAB.ER.24H PO (09:34)
[2022-07-22] MEDS: Cholecalciferol (Vitamin D3) 25 MCG TABLET PO (09:34)
[2022-07-22] MEDS: estradioL 0.5 MG TABLET PO (09:34)
[2022-07-22] MEDS: Omeprazole 20 MG CAPSULE.DR PO (09:34)
[2022-07-22] MEDS: Cyanocobalamin (Vitamin B-12) 100 MCG TABLET PO (09:34)
[2022-07-22 09:51] VITALS: BP 123/58; PULSE 65; TEMP 36.6; O2SAT 98
[2022-07-22] MEDS: Ibuprofen 600 MG TABLET PO (10:16)
--- NOTE | 2022-07-22 12:15 | P.PNPSI_ITS ---
Subjective Subjective Date of Service: 07/22/22 Reason For Visit: si, bipolar d/o Subjective Notes: Conditional Voluntary Healthcare Proxy: No Guardianship: No Medical Problems Affecting Mental Status: No Interim History: Reports hydroxyzine precipitates anxiety- will discontinue. Call to [facility] to validate Meloxicam dosage, 15 mg daily. Reports clonidine is not helpful as well, asks to stop this Would like to continue Melatonin. Discussed Valproate trial to assist with racing thoughts Medication Compliance: Yes Side effects from medications: Yes (hydroxyzine) Attending Groups: No Review of Systems Acute medical concerns: No Medical Review of Systems: unchanged Mental Status Exam Mental Status Exam Patient Appearance: Fatigued Patient Orientation: Person, Place, Time and Situation Level of Consciousness: Alert Patient Behavior: Appropriate, Talkative, Cooperative and Good Eye Contact Mood Description: Flat Affect Description: Flat Patient Cognition Impaired: No Ability to Follow Directions: Good Speech Pattern: Spontaneous Speech Memory Description: Intact and Episodic Impaired Hallucinations: None Delusions: Not Present Thought Process: Distracted Thought Content: positive for [place] Depressive Symptoms: Increased Anxiety Judgement: Good Diagnostics Vital Signs (24Hr): Vital Signs - 24 hr 07/21/22 18:00 07/22/22 09:51 Temperature 98.3 F 97.8 F Pulse Rate 85 65 Respiratory Rate 18 Blood Pressure 152/79 H 123/58 L Pulse Oximetry 98 98 Oxygen Delivery Method Room Air Room Air BMI result Body Mass Index 46.6 Labs Results: 07/16/22 00:21 07/16/22 00:21 Medications Medications Current Medications Acetaminophen (Acetaminophen 325 Mg Tablet) 650 mg PO Q6H PRN PRN Reason: Headache/Pain Mild Scale (1-3) Last Admin: 07/21/22 09:53 Dose: 650 mg Al Hydroxide/Mg Hydroxide (Magnesium Hydrox/Alum Hydrox 30 Ml Oral.Susp) 30 ml PO Q6H PRN PRN Reason: Heartburn/Nausea Bupropion HCl (Bupropion Hcl Xl 300 Mg Tab.Er.24h) 300 mg PO DAILY [facility] Last Admin: 07/22/22 09:34 Dose: 300 mg Clonidine HCl (Clonidine Hcl 0.1 Mg Tablet) 0.1 mg PO BEDTIME [facility]; Protocol Last Admin: 07/21/22 20:39 Dose: 0.1 mg Cyanocobalamin (Cyanocobalamin (Vitamin B-12) 100 Mcg Tablet) 100 mcg PO DAILY [facility] Last Admin: 07/22/22 09:34 Dose: 100 mcg Duloxetine HCl (Duloxetine Hcl 60 Mg Capsule.) 60 mg PO DAILY [facility] Last Admin: 07/22/22 09:34 Dose: 60 mg Estradiol (Estradiol 0.5 Mg Tablet) 0.5 mg PO DAILY [facility] Last Admin: 07/22/22 09:34 Dose: 0.5 mg Ibuprofen (Ibuprofen 600 Mg Tablet) 600 mg PO Q6H PRN PRN Reason: Pain, Moderate (Pain Scale 4-6 Last Admin: 07/22/22 10:16 Dose: 600 mg Loratadine (Loratadine 10 Mg Tablet) 10 mg PO DAILY [facility] Last Admin: 07/22/22 09:34 Dose: 10 mg Magnesium Hydroxide (Milk Of Magnesia 30 Ml Oral.Susp) 30 ml PO DAILY PRN PRN Reason: Constipation Melatonin (Melatonin 3 Mg Tablet) 6 mg PO BEDTIME MRX1 [facility] Last Admin: 07/21/22 23:27 Dose: Not Given Multivitamins/Vitamin C (Multivitamin Tablet) 1 tab PO DAILY [facility] Last Admin: 07/22/22 09:34 Dose: 1 tab Omeprazole (Omeprazole 20 Mg Capsule.) 20 mg PO DAILY@0630 [facility] Last Admin: 07/22/22 09:34 Dose: 20 mg Pharmacy Consult (Consult Rx Perform Med Rec) 1 each MISCELLANE ONCE PRN PRN Reason: Consult order Polyethylene Glycol (Polyethylene Glycol 3350 17 Gm Powd.Pack) 17 gm PO DAILY [facility] Last Admin: 07/22/22 10:16 Dose: Not Given Vitamin D (Cholecalciferol (Vitamin D3) 25 Mcg Tablet) 25 mcg PO DAILY [facility] Last Admin: 07/22/22 09:34 Dose: 25 mcg Allergies Allergies Allergy/AdvReac Type Severity Reaction Status Date / Time Penicillins AdvReac Hives Verified 07/15/22 23:52 Assessment & Plan Assessment & Plan (1) PTSD (post-traumatic stress disorder): Status: Acute Code(s): F43.10 - Post-traumatic stress disorder, unspecified Assessment and Plan: changed trazodone to hydroxyzine for sleep 07/18 07/19 adding melatonin (2) Stimulant use disorder: Status: Acute Code(s): F15.90 - Other stimulant use, unspecified, uncomplicated Assessment and Plan: could be fatigued from this as well (3) Alcohol use disorder: Status: Acute Code(s): F19.90 - Other psychoactive substance use, unspecified, uncomplicated Assessment and Plan: awaiting placement Plan 52 yo female, reports stopping meds, relapse with SIBS and increasing SI. Plan: Review of meds, regime restored, allow to take effect. Pt reports, by history this regime as worked well. Collateral contact Diagnostics as needed Pt reports she is not intersted at this time in residential level of care. Continue to discuss. 07/20/22: Continue current regime Decrease of HS hydroxyzine from 50 mg to 25 mg as pt has a hx of vertigo, dizziness, but finds it an effective sleep agent. 07/21 Discontinue hydroxyzine: Feels it is making her nauseous Start clonidine 0.1 mg q.h.s. for trouble sleeping. Increased melatonin to 6 mg at patient's request 07/22/22 Meloxicam 15 mg daily Valproate ER 250 mg HS Discontinue Clonidine Continue melatonin I spent minutes with the patient and/or on the patient floor today, greater than?50% of which was spent counseling/coordinating care. Patient educated on: medication risk/benefits and therapeutic strategies Informed Consent: understands and further education needed Reason for contiued inpatient stay Substantial Risk for: rapid decompensation
[2022-07-22 18:00] VITALS: BP 139/98; PULSE 98; RESP 18; TEMP 36.6; O2SAT 98
[2022-07-22] MEDS: Melatonin 3 MG TABLET 6 MG PO (21:40)
[2022-07-22] MEDS: NaPROXEN 500 MG TABLET PO (21:40)
[2022-07-22] MEDS: Divalproex Sodium ER 250 MG TAB.ER.24H PO (21:40)
[2022-07-23] MEDS: Melatonin 3 MG TABLET 6 MG PO ×2 (02:03→19:50)
[2022-07-23 09:45] VITALS: BP 129/66; PULSE 81; RESP 18; TEMP 36.7; O2SAT 97
[2022-07-23] MEDS: Omeprazole 20 MG CAPSULE.DR PO (09:49)
[2022-07-23] MEDS: buPROPion HCl XL 300 MG TAB.ER.24H PO (09:49)
[2022-07-23] MEDS: Multivitamin TABLET 1 TAB PO (09:49)
[2022-07-23] MEDS: Cholecalciferol (Vitamin D3) 25 MCG TABLET PO (09:49)
[2022-07-23] MEDS: DULoxetine HCl 60 MG CAPSULE.DR PO (09:49)
[2022-07-23] MEDS: Cyanocobalamin (Vitamin B-12) 100 MCG TABLET PO (09:49)
[2022-07-23] MEDS: Loratadine 10 MG TABLET PO (09:49)
[2022-07-23] MEDS: estradioL 0.5 MG TABLET PO (09:49)
[2022-07-23] MEDS: polyethylene glycoL 3350 17 GM POWD.PACK PO (09:55)
--- NOTE | 2022-07-23 17:46 | P.PNPSI_ITS ---
Subjective Subjective Date of Service: 07/23/22 Reason For Visit: si, bipolar d/o Subjective Notes: Conditional Voluntary Healthcare Proxy: No Guardianship: No Medical Problems Affecting Mental Status: No Interim History: Reports poor sleep last evening. We continue to work on sleep hygiene. Asks to return to [facility] scheduled with prn repeat. Awaiting placement options Medication Compliance: Yes Side effects from medications: No Attending Groups: Intermittent Review of Systems Acute medical concerns: No Medical Review of Systems: unchanged Mental Status Exam Mental Status Exam Patient Appearance: Fatigued Patient Orientation: Person, Place, Time and Situation Level of Consciousness: Alert Patient Behavior: Appropriate, Talkative, Cooperative and Good Eye Contact Mood Description: Flat Affect Description: Flat Patient Cognition Impaired: No Ability to Follow Directions: Good Speech Pattern: Spontaneous Speech Memory Description: Intact and Episodic Impaired Hallucinations: None Delusions: Not Present Thought Process: Distracted Thought Content: positive for [place] Depressive Symptoms: Increased Anxiety Judgement: Good Diagnostics Vital Signs (24Hr): Vital Signs - 24 hr 07/22/22 18:00 07/23/22 09:45 Temperature 98 F 98.0 F Pulse Rate 98 81 Respiratory Rate 18 18 Blood Pressure 139/98 H 129/66 Pulse Oximetry 98 97 Oxygen Delivery Method Room Air Room Air BMI result Body Mass Index 46.6 Labs Results: 07/16/22 00:21 07/16/22 00:21 Medications Medications Current Medications Acetaminophen (Acetaminophen 325 Mg Tablet) 650 mg PO Q6H PRN PRN Reason: Headache/Pain Mild Scale (1-3) Last Admin: 07/21/22 09:53 Dose: 650 mg Al Hydroxide/Mg Hydroxide (Magnesium Hydrox/Alum Hydrox 30 Ml Oral.Susp) 30 ml PO Q6H PRN PRN Reason: Heartburn/Nausea Bupropion HCl (Bupropion Hcl Xl 300 Mg Tab.Er.24h) 300 mg PO DAILY [facility] Last Admin: 07/23/22 09:49 Dose: 300 mg Cyanocobalamin (Cyanocobalamin (Vitamin B-12) 100 Mcg Tablet) 100 mcg PO DAILY [facility] Last Admin: 07/23/22 09:49 Dose: 100 mcg Divalproex Sodium (Divalproex Sodium Er 250 Mg Tab.Er.24h) 250 mg PO BEDTIME [facility] Last Admin: 07/22/22 21:40 Dose: 250 mg Duloxetine HCl (Duloxetine Hcl 60 Mg Capsule.Dr) 60 mg PO DAILY [facility] Last Admin: 07/23/22 09:49 Dose: 60 mg Estradiol (Estradiol 0.5 Mg Tablet) 0.5 mg PO DAILY [facility] Last Admin: 07/23/22 09:49 Dose: 0.5 mg Ibuprofen (Ibuprofen 600 Mg Tablet) 600 mg PO Q6H PRN PRN Reason: Pain, Moderate (Pain Scale 4-6 Last Admin: 07/22/22 10:16 Dose: 600 mg Loratadine (Loratadine 10 Mg Tablet) 10 mg PO DAILY [facility] Last Admin: 07/23/22 09:49 Dose: 10 mg Magnesium Hydroxide (Milk Of Magnesia 30 Ml Oral.Susp) 30 ml PO DAILY PRN PRN Reason: Constipation Melatonin (Melatonin 3 Mg Tablet) 6 mg PO BEDTIME MRX1 [facility] Last Admin: 07/23/22 02:03 Dose: 6 mg Multivitamins/Vitamin C (Multivitamin Tablet) 1 tab PO DAILY [facility] Last Admin: 07/23/22 09:49 Dose: 1 tab Naproxen (Naproxen 500 Mg Tablet) 500 mg PO BEDTIME [facility] Last Admin: 07/22/22 21:40 Dose: 500 mg Omeprazole (Omeprazole 20 Mg Capsule.) 20 mg PO DAILY@0630 [facility] Last Admin: 07/23/22 09:49 Dose: 20 mg Pharmacy Consult (Consult Rx Perform Med Rec) 1 each MISCELLANE ONCE PRN PRN Reason: Consult order Polyethylene Glycol (Polyethylene Glycol 3350 17 Gm Powd.Pack) 17 gm PO DAILY [facility] Last Admin: 07/23/22 09:55 Dose: 17 gm Vitamin D (Cholecalciferol (Vitamin D3) 25 Mcg Tablet) 25 mcg PO DAILY [facility] Last Admin: 07/23/22 09:49 Dose: 25 mcg Allergies Allergies Allergy/AdvReac Type Severity Reaction Status Date / Time Penicillins AdvReac Hives Verified 07/15/22 23:52 hydroxyzine AdvReac Severe Anxiety Uncoded 07/23/22 17:13 Assessment & Plan Assessment & Plan (1) PTSD (post-traumatic stress disorder): Status: Acute Code(s): F43.10 - Post-traumatic stress disorder, unspecified Assessment and Plan: changed trazodone to hydroxyzine for sleep 07/18 07/19 adding melatonin (2) Stimulant use disorder: Status: Acute Code(s): F15.90 - Other stimulant use, unspecified, uncomplicated Assessment and Plan: could be fatigued from this as well (3) Alcohol use disorder: Status: Acute Code(s): F19.90 - Other psychoactive substance use, unspecified, uncomplicated Assessment and Plan: awaiting placement Plan 52 yo female, reports stopping meds, relapse with SIBS and increasing SI. Plan: Review of meds, regime restored, allow to take effect. Pt reports, by history this regime as worked well. Collateral contact Diagnostics as needed Pt reports she is not intersted at this time in residential level of care. Continue to discuss. 07/20/22: Continue current regime Decrease of HS hydroxyzine from 50 mg to 25 mg as pt has a hx of vertigo, dizziness, but finds it an effective sleep agent. 07/21 Discontinue hydroxyzine: Feels it is making her nauseous Start clonidine 0.1 mg q.h.s. for trouble sleeping. Increased melatonin to 6 mg at patient's request 07/22/22 Meloxicam 15 mg daily Valproate ER 250 mg HS Discontinue Clonidine Continue melatonin 07/23/22 Trazodone 50 mg HS with 50 mg repeat prn I spent minutes with the patient and/or on the patient floor today, greater than?50% of which was spent counseling/coordinating care. Patient educated on: medication risk/benefits and therapeutic strategies Informed Consent: understands and further education needed Reason for contiued inpatient stay Substantial Risk for: inability to function and rapid decompensation
[2022-07-23 18:00] VITALS: BP 128/78; PULSE 85; RESP 16; TEMP 36.4; O2SAT 98
[2022-07-23] MEDS: Divalproex Sodium ER 250 MG TAB.ER.24H PO (19:49)
[2022-07-23] MEDS: NaPROXEN 500 MG TABLET PO (19:49)
[2022-07-23] MEDS: traZODone HCL 50 MG TABLET PO (19:50)
[2022-07-24 08:45] VITALS: BP 102/50; PULSE 69; RESP 16; TEMP 36.4; O2SAT 95
[2022-07-24] MEDS: Omeprazole 20 MG CAPSULE.DR PO (09:59)
[2022-07-24] MEDS: polyethylene glycoL 3350 17 GM POWD.PACK PO (09:59)
[2022-07-24] MEDS: Multivitamin TABLET 1 TAB PO (09:59)
[2022-07-24] MEDS: estradioL 0.5 MG TABLET PO (10:00)
[2022-07-24] MEDS: buPROPion HCl XL 300 MG TAB.ER.24H PO (10:00)
[2022-07-24] MEDS: Cholecalciferol (Vitamin D3) 25 MCG TABLET PO (10:00)
[2022-07-24] MEDS: DULoxetine HCl 60 MG CAPSULE.DR PO (10:00)
[2022-07-24] MEDS: Cyanocobalamin (Vitamin B-12) 100 MCG TABLET PO (10:00)
[2022-07-24] MEDS: Loratadine 10 MG TABLET PO (10:00)
--- NOTE | 2022-07-24 15:19 | HO.PSYCHPN ---
Subjective Subjective Date of Service: 07/24/22 Reason For Visit: si, bipolar d/o Subjective Notes: Conditional Voluntary Healthcare Proxy: No Guardianship: No Medical Problems Affecting Mental Status: No Interim History: I am feeling better. Denies SI today Sleeping with Depakote as it is addressing racing thoughts she reports Discussion of Naproxen replacing Meloxicam due to [facility] formulary restrictions Discussed concern about 15 yo son. Older son caring for him and pt's 17 yo daughter who is . 52A filed as 16yo was caught with cannabis in school, got a tattoo on his neck and arm without permission and ran away. He is just like his father and I-independent . Hoping for placement opportunity to become available soon. Discussed worry about current family consideration. Medication Compliance: Yes Side effects from medications: No Attending Groups: Intermittent Review of Systems Acute medical concerns: No Medical Review of Systems: changed Mental Status Exam Mental Status Exam Patient Appearance: Appropriate Patient Orientation: Person, Place, Time and Situation Level of Consciousness: Alert Patient Behavior: Appropriate, Talkative, Cooperative and Good Eye Contact Mood Description: Flat Affect Description: Flat Patient Cognition Impaired: No Ability to Follow Directions: Good Speech Pattern: Spontaneous Speech Memory Description: Intact and Episodic Impaired Hallucinations: None Delusions: Not Present Thought Process: Distracted Thought Content: positive for [place] Depressive Symptoms: Increased Anxiety Judgement: Good Diagnostics Vital Signs (24Hr): Vital Signs - 24 hr 07/23/22 18:00 07/24/22 08:45 Temperature 97.6 F 97.6 F Pulse Rate 85 69 Respiratory Rate 16 16 Blood Pressure 128/78 102/50 L Pulse Oximetry 98 95 Oxygen Delivery Method Room Air Room Air BMI result Body Mass Index 46.6 Labs Results: 07/16/22 00:21 07/16/22 00:21 Medications Medications Current Medications Acetaminophen (Acetaminophen 325 Mg Tablet) 650 mg PO Q6H PRN PRN Reason: Headache/Pain Mild Scale (1-3) Last Admin: 07/21/22 09:53 Dose: 650 mg Al Hydroxide/Mg Hydroxide (Magnesium Hydrox/Alum Hydrox 30 Ml Oral.Susp) 30 ml PO Q6H PRN PRN Reason: Heartburn/Nausea Bupropion HCl (Bupropion Hcl Xl 300 Mg Tab.Er.24h) 300 mg PO DAILY [facility] Last Admin: 07/24/22 10:00 Dose: 300 mg Cyanocobalamin (Cyanocobalamin (Vitamin B-12) 100 Mcg Tablet) 100 mcg PO DAILY [facility] Last Admin: 07/24/22 10:00 Dose: 100 mcg Divalproex Sodium (Divalproex Sodium Er 250 Mg Tab.Er.24h) 250 mg PO BEDTIME [facility] Last Admin: 07/23/22 19:49 Dose: 250 mg Duloxetine HCl (Duloxetine Hcl 60 Mg Capsule.Dr) 60 mg PO DAILY [facility] Last Admin: 07/24/22 10:00 Dose: 60 mg Estradiol (Estradiol 0.5 Mg Tablet) 0.5 mg PO DAILY [facility] Last Admin: 07/24/22 10:00 Dose: 0.5 mg Ibuprofen (Ibuprofen 600 Mg Tablet) 600 mg PO Q6H PRN PRN Reason: Pain, Moderate (Pain Scale 4-6 Last Admin: 07/22/22 10:16 Dose: 600 mg Loratadine (Loratadine 10 Mg Tablet) 10 mg PO DAILY [facility] Last Admin: 07/24/22 10:00 Dose: 10 mg Magnesium Hydroxide (Milk Of Magnesia 30 Ml Oral.Susp) 30 ml PO DAILY PRN PRN Reason: Constipation Melatonin (Melatonin 3 Mg Tablet) 6 mg PO BEDTIME MRX1 [facility] Last Admin: 07/23/22 22:39 Dose: Not Given Multivitamins/Vitamin C (Multivitamin Tablet) 1 tab PO DAILY [facility] Last Admin: 07/24/22 09:59 Dose: 1 tab Naproxen (Naproxen 500 Mg Tablet) 500 mg PO BEDTIME [facility] Last Admin: 07/23/22 19:49 Dose: 500 mg Omeprazole (Omeprazole 20 Mg Capsule.) 20 mg PO DAILY@0630 [facility] Last Admin: 07/24/22 09:59 Dose: 20 mg Pharmacy Consult (Consult Rx Perform Med Rec) 1 each MISCELLANE ONCE PRN PRN Reason: Consult order Polyethylene Glycol (Polyethylene Glycol 3350 17 Gm Powd.Pack) 17 gm PO DAILY [facility] Last Admin: 07/24/22 09:59 Dose: 17 gm Trazodone HCl (Trazodone Hcl 50 Mg Tablet) 50 mg PO BEDTIME PRN PRN Reason: after scheduled dose for insomnia Trazodone HCl (Trazodone Hcl 50 Mg Tablet) 50 mg PO BEDTIME [facility] Last Admin: 07/23/22 19:50 Dose: 50 mg Vitamin D (Cholecalciferol (Vitamin D3) 25 Mcg Tablet) 25 mcg PO DAILY [facility] Last Admin: 07/24/22 10:00 Dose: 25 mcg Allergies Allergies Allergy/AdvReac Type Severity Reaction Status Date / Time Penicillins AdvReac Hives Verified 07/15/22 23:52 hydroxyzine AdvReac Severe Anxiety Uncoded 07/23/22 17:13 Assessment & Plan Assessment & Plan (1) PTSD (post-traumatic stress disorder): Status: Acute Code(s): F43.10 - Post-traumatic stress disorder, unspecified Assessment and Plan: changed trazodone to hydroxyzine for sleep 07/18 07/19 adding melatonin (2) Stimulant use disorder: Status: Acute Code(s): F15.90 - Other stimulant use, unspecified, uncomplicated Assessment and Plan: could be fatigued from this as well (3) Alcohol use disorder: Status: Acute Code(s): F19.90 - Other psychoactive substance use, unspecified, uncomplicated Assessment and Plan: awaiting placement Plan 52 yo female, reports stopping meds, relapse with SIBS and increasing SI. Plan: Review of meds, regime restored, allow to take effect. Pt reports, by history this regime as worked well. Collateral contact Diagnostics as needed Pt reports she is not intersted at this time in residential level of care. Continue to discuss. 07/20/22: Continue current regime Decrease of HS hydroxyzine from 50 mg to 25 mg as pt has a hx of vertigo, dizziness, but finds it an effective sleep agent. 07/21 Discontinue hydroxyzine: Feels it is making her nauseous Start clonidine 0.1 mg q.h.s. for trouble sleeping. Increased melatonin to 6 mg at patient's request 07/22/22 Meloxicam 15 mg daily Valproate ER 250 mg HS Discontinue Clonidine Continue melatonin 07/23/22 Trazodone 50 mg HS with 50 mg repeat prn 07/24/22 Continue current regime I spent minutes with the patient and/or on the patient floor today, greater than?50% of which was spent counseling/coordinating care. Patient educated on: therapeutic strategies Informed Consent: understands Reason for contiued inpatient stay Substantial Risk for: rapid decompensation
[2022-07-24 17:45] VITALS: BP 138/62; PULSE 91; TEMP 36.6
[2022-07-24] MEDS: Divalproex Sodium ER 250 MG TAB.ER.24H PO (21:51)
[2022-07-24] MEDS: NaPROXEN 500 MG TABLET PO (21:51)
[2022-07-24] MEDS: traZODone HCL 50 MG TABLET PO (21:51)
[2022-07-24] MEDS: Melatonin 3 MG TABLET 6 MG PO (21:51)
[2022-07-25] MEDS: Omeprazole 20 MG CAPSULE.DR PO (06:36)
[2022-07-25] MEDS: DULoxetine HCl 60 MG CAPSULE.DR PO (08:39)
[2022-07-25] MEDS: estradioL 0.5 MG TABLET PO (08:39)
[2022-07-25] MEDS: Cyanocobalamin (Vitamin B-12) 100 MCG TABLET PO (08:39)
[2022-07-25] MEDS: Loratadine 10 MG TABLET PO (08:39)
[2022-07-25] MEDS: buPROPion HCl XL 300 MG TAB.ER.24H PO (08:39)
[2022-07-25] MEDS: Multivitamin TABLET 1 TAB PO (08:39)
[2022-07-25] MEDS: Cholecalciferol (Vitamin D3) 25 MCG TABLET PO (08:39)
[2022-07-25] MEDS: polyethylene glycoL 3350 17 GM POWD.PACK PO (08:39)
[2022-07-25 09:09] VITALS: BP 122/74; PULSE 75; RESP 16; TEMP 36.4; O2SAT 97
--- NOTE | 2022-07-25 09:48 | P.PNPSI_ITS ---
Subjective Subjective Date of Service: 07/25/22 Reason For Visit: si, bipolar d/o Interim History: Patient is somewhat lethargic and withdrawn denies active self-harm says reportedly feeling more stable Mental Status Exam Mental Status Exam Patient Appearance: Appropriate Patient Orientation: Person, Place, Time and Situation Level of Consciousness: Alert Patient Behavior: Appropriate, Talkative, Cooperative and Good Eye Contact Mood Description: Flat Affect Description: Flat Patient Cognition Impaired: No Ability to Follow Directions: Good Speech Pattern: Spontaneous Speech Memory Description: Intact and Episodic Impaired Hallucinations: None Delusions: Not Present Thought Process: Distracted Thought Content: positive for [place] Depressive Symptoms: Increased Anxiety Judgement: Good Diagnostics Vital Signs (24Hr): Vital Signs - 24 hr 07/24/22 17:45 07/25/22 09:09 Temperature 97.9 F 97.6 F Pulse Rate 91 75 Respiratory Rate 16 Blood Pressure 138/62 122/74 Pulse Oximetry 97 Oxygen Delivery Method Room Air BMI result Body Mass Index 46.6 Labs Results: 07/16/22 00:21 07/16/22 00:21 Medications Medications Current Medications Acetaminophen (Acetaminophen 325 Mg Tablet) 650 mg PO Q6H PRN PRN Reason: Headache/Pain Mild Scale (1-3) Last Admin: 07/21/22 09:53 Dose: 650 mg Al Hydroxide/Mg Hydroxide (Magnesium Hydrox/Alum Hydrox 30 Ml Oral.Susp) 30 ml PO Q6H PRN PRN Reason: Heartburn/Nausea Bupropion HCl (Bupropion Hcl Xl 300 Mg Tab.Er.24h) 300 mg PO DAILY [facility] BEDS [facility] Last Admin: 07/25/22 08:39 Dose: 300 mg Cyanocobalamin (Cyanocobalamin (Vitamin B-12) 100 Mcg Tablet) 100 mcg PO DAILY [facility] 234 BEDS AT [facility] Last Admin: 07/25/22 08:39 Dose: 100 mcg Divalproex Sodium (Divalproex Sodium Er 250 Mg Tab.Er.24h) 250 mg PO BEDTIME [facility] 234 BEDS AT [facility] Last Admin: 07/24/22 21:51 Dose: 250 mg Duloxetine HCl (Duloxetine Hcl 60 Mg Capsule.Dr) 60 mg PO DAILY [facility] 234 BEDS AT [facility] Last Admin: 07/25/22 08:39 Dose: 60 mg Estradiol (Estradiol 0.5 Mg Tablet) 0.5 mg PO DAILY [facility] 234 BEDS AT [facility] Last Admin: 07/25/22 08:39 Dose: 0.5 mg Ibuprofen (Ibuprofen 600 Mg Tablet) 600 mg PO Q6H PRN PRN Reason: Pain, Moderate (Pain Scale 4-6 Last Admin: 07/22/22 10:16 Dose: 600 mg Loratadine (Loratadine 10 Mg Tablet) 10 mg PO DAILY [facility] 234 [facility]S [facility] Last Admin: 07/25/22 08:39 Dose: 10 mg Magnesium Hydroxide (Milk Of Magnesia 30 Ml Oral.Susp) 30 ml PO DAILY PRN PRN Reason: Constipation Melatonin (Melatonin 3 Mg Tablet) 6 mg PO BEDTIME MRX1 [facility] 234 BEDS [facility] Last Admin: 07/25/22 04:19 Dose: Not Given Multivitamins/Vitamin C (Multivitamin Tablet) 1 tab PO DAILY [facility] 234 B[facility]S [facility] Last Admin: 07/25/22 08:39 Dose: 1 tab Naproxen (Naproxen 500 Mg Tablet) 500 mg PO BEDTIME [facility] 234 BEDS [facility] Last Admin: 07/24/22 21:51 Dose: 500 mg Omeprazole (Omeprazole 20 Mg Capsule.Dr) 20 mg PO DAILY@0630 [facility] 234 BEDS [facility] Last Admin: 07/25/22 06:36 Dose: 20 mg Pharmacy Consult (Consult Rx Perform Med Rec) 1 each MISCELLANE ONCE PRN PRN Reason: Consult order Polyethylene Glycol (Polyethylene Glycol 3350 17 Gm Powd.Pack) 17 gm PO DAILY [facility] 234 B[facility]S [facility] Last Admin: 07/25/22 08:39 Dose: 17 gm Trazodone HCl (Trazodone Hcl 50 Mg Tablet) 50 mg PO BEDTIME PRN PRN Reason: after scheduled dose for insomnia Trazodone HCl (Trazodone Hcl 50 Mg Tablet) 50 mg PO BEDTIME [facility] 234 BEDS [facility] Last Admin: 07/24/22 21:51 Dose: 50 mg Vitamin D (Cholecalciferol (Vitamin D3) 25 Mcg Tablet) 25 mcg PO DAILY [facility] 234 [facility]S [facility] Last Admin: 07/25/22 08:39 Dose: 25 mcg Allergies Allergies Allergy/AdvReac Type Severity Reaction Status Date / Time Penicillins AdvReac Hives Verified 07/15/22 23:52 hydroxyzine AdvReac Severe Anxiety Uncoded 07/23/22 17:13 Assessment & Plan Assessment & Plan (1) PTSD (post-traumatic stress disorder): Status: Acute Code(s): F43.10 - Post-traumatic stress disorder, unspecified Assessment and Plan: changed trazodone to hydroxyzine for sleep 07/18 07/19 adding melatonin (2) Stimulant use disorder: Status: Acute Code(s): F15.90 - Other stimulant use, unspecified, uncomplicated Assessment and Plan: could be fatigued from this as well (3) Alcohol use disorder: Status: Acute Code(s): F19.90 - Other psychoactive substance use, unspecified, uncomplicated Assessment and Plan: awaiting placement Plan 52 yo female, reports stopping meds, relapse with SIBS and increasing SI. Plan: Review of meds, regime restored, allow to take effect. Pt reports, by history this regime as worked well. Collateral contact Diagnostics as needed Pt reports she is not intersted at this time in residential level of care. Continue to discuss. 07/20/22: Continue current regime Decrease of HS hydroxyzine from 50 mg to 25 mg as pt has a hx of vertigo, dizziness, but finds it an effective sleep agent. 07/21 Discontinue hydroxyzine: Feels it is making her nauseous Start clonidine 0.1 mg q.h.s. for trouble sleeping. Increased melatonin to 6 mg at patient's request 07/22/22 Meloxicam 15 mg daily Valproate ER 250 mg HS Discontinue Clonidine Continue melatonin 07/23/22 Trazodone 50 mg HS with 50 mg repeat prn 07/24/22 Continue current regime 07/25/2022 Patient seen chart reviewed case reviewed with treatment team. No change in skin did this time continue discharge planning I spent minutes with the patient and/or on the patient floor today, greater than?50% of which was spent counseling/coordinating care. Reason for contiued inpatient stay Substantial Risk for: harm to self
[2022-07-25 16:08] VITALS: BP 139/74; PULSE 89; TEMP 36.2
[2022-07-25] MEDS: Milk of Magnesia 30 ML ORAL.SUSP PO (16:57)
[2022-07-25] MEDS: Melatonin 3 MG TABLET 6 MG PO (20:55)
[2022-07-25] MEDS: NaPROXEN 500 MG TABLET PO (20:55)
[2022-07-25] MEDS: Divalproex Sodium ER 250 MG TAB.ER.24H PO (20:55)
[2022-07-25] MEDS: traZODone HCL 50 MG TABLET PO (20:55)
[2022-07-26] MEDS: Omeprazole 20 MG CAPSULE.DR PO (06:45)
[2022-07-26] MEDS: buPROPion HCl XL 300 MG TAB.ER.24H PO (08:47)
[2022-07-26] MEDS: Cholecalciferol (Vitamin D3) 25 MCG TABLET PO (08:47)
[2022-07-26] MEDS: estradioL 0.5 MG TABLET PO (08:47)
[2022-07-26] MEDS: Multivitamin TABLET 1 TAB PO (08:47)
[2022-07-26] MEDS: Loratadine 10 MG TABLET PO (08:48)
[2022-07-26] MEDS: DULoxetine HCl 60 MG CAPSULE.DR PO (08:48)
[2022-07-26] MEDS: Cyanocobalamin (Vitamin B-12) 100 MCG TABLET PO (08:48)
[2022-07-26 09:09] VITALS: BP 128/72; PULSE 68; RESP 16; TEMP 36.4; O2SAT 98
[2022-07-26 16:49] VITALS: BP 114/55; PULSE 80; RESP 20; TEMP 36.7; O2SAT 97
[2022-07-26] MEDS: Divalproex Sodium ER 250 MG TAB.ER.24H PO (22:30)
[2022-07-26] MEDS: traZODone HCL 100 MG TABLET PO (22:30)
[2022-07-26] MEDS: NaPROXEN 500 MG TABLET PO (22:31)
[2022-07-26] MEDS: Melatonin 3 MG TABLET 6 MG PO (22:33)
--- NOTE | 2022-07-26 23:05 | HO.PSYCHPN ---
Subjective Subjective Date of Service: 07/26/22 Reason For Visit: si, bipolar d/o Interim History: Patient withdrawn apathetic somewhat depresse d complains of insomnia encouraged to stay out of bed more during the day Mental Status Exam Mental Status Exam Patient Appearance: Appropriate Patient Orientation: Person, Place, Time and Situation Level of Consciousness: Alert Patient Behavior: Appropriate, Talkative, Cooperative and Good Eye Contact Mood Description: Withdrawn and Flat Affect Description: Flat and Sad Patient Cognition Impaired: No Ability to Follow Directions: Good Speech Pattern: Spontaneous Speech Memory Description: Intact and Episodic Impaired Hallucinations: None Delusions: Not Present Thought Process: Distracted Thought Content: positive for [place] Depressive Symptoms: Increased Anxiety Judgement: Good Diagnostics Vital Signs (24Hr): Vital Signs - 24 hr 07/26/22 09:09 07/26/22 16:49 Temperature 97.5 F 98.1 F Pulse Rate 68 80 Respiratory Rate 16 20 Blood Pressure 128/72 114/55 L Pulse Oximetry 98 97 Oxygen Delivery Method Room Air Room Air BMI result Body Mass Index 46.6 Labs Results: 07/16/22 00:21 07/16/22 00:21 Medications Medications Current Medications Acetaminophen (Acetaminophen 325 Mg Tablet) 650 mg PO Q6H PRN PRN Reason: Headache/Pain Mild Scale (1-3) Last Admin: 07/21/22 09:53 Dose: 650 mg Al Hydroxide/Mg Hydroxide (Magnesium Hydrox/Alum Hydrox 30 Ml Oral.Susp) 30 ml PO Q6H PRN PRN Reason: Heartburn/Nausea Bupropion HCl (Bupropion Hcl Xl 300 Mg Tab.Er.24h) 300 mg PO DAILY [facility] Last Admin: 07/26/22 08:47 Dose: 300 mg Cyanocobalamin (Cyanocobalamin (Vitamin B-12) 100 Mcg Tablet) 100 mcg PO DAILY [facility] Last Admin: 07/26/22 08:48 Dose: 100 mcg Divalproex Sodium (Divalproex Sodium Er 250 Mg Tab.Er.24h) 250 mg PO BEDTIME [facility] Last Admin: 07/26/22 22:30 Dose: 250 mg Duloxetine HCl (Duloxetine Hcl 60 Mg Capsule.Dr) 60 mg PO DAILY [facility] Last Admin: 07/26/22 08:48 Dose: 60 mg Estradiol (Estradiol 0.5 Mg Tablet) 0.5 mg PO DAILY [facility] Last Admin: 07/26/22 08:47 Dose: 0.5 mg Ibuprofen (Ibuprofen 600 Mg Tablet) 600 mg PO Q6H PRN PRN Reason: Pain, Moderate (Pain Scale 4-6 Last Admin: 07/22/22 10:16 Dose: 600 mg Loratadine (Loratadine 10 Mg Tablet) 10 mg PO DAILY [facility] Last Admin: 07/26/22 08:48 Dose: 10 mg Magnesium Hydroxide (Milk Of Magnesia 30 Ml Oral.Susp) 30 ml PO DAILY PRN PRN Reason: Constipation Last Admin: 07/25/22 16:57 Dose: 30 ml Melatonin (Melatonin 3 Mg Tablet) 6 mg PO BEDTIME MRX1 [facility] Last Admin: 07/26/22 22:33 Dose: 6 mg Multivitamins/Vitamin C (Multivitamin Tablet) 1 tab PO DAILY [facility] Last Admin: 07/26/22 08:47 Dose: 1 tab Naproxen (Naproxen 500 Mg Tablet) 500 mg PO BEDTIME [facility] Last Admin: 07/26/22 22:31 Dose: 500 mg Omeprazole (Omeprazole 20 Mg Capsule.Dr) 20 mg PO DAILY@0630 [facility] Last Admin: 07/26/22 06:45 Dose: 20 mg Pharmacy Consult (Consult Rx Perform Med Rec) 1 each MISCELLANE ONCE PRN PRN Reason: Consult order Polyethylene Glycol (Polyethylene Glycol 3350 17 Gm Powd.Pack) 17 gm PO DAILY [facility] Last Admin: 07/26/22 08:49 Dose: Not Given Trazodone HCl (Trazodone Hcl 50 Mg Tablet) 50 mg PO BEDTIME PRN PRN Reason: after scheduled dose for insomnia Trazodone HCl (Trazodone Hcl 100 Mg Tablet) 100 mg PO BEDTIME [facility] Last Admin: 07/26/22 22:30 Dose: 100 mg Vitamin D (Cholecalciferol (Vitamin D3) 25 Mcg Tablet) 25 mcg PO DAILY [facility] Last Admin: 07/26/22 08:47 Dose: 25 mcg Allergies Allergies Allergy/AdvReac Type Severity Reaction Status Date / Time Penicillins AdvReac Hives Verified 07/15/22 23:52 hydroxyzine AdvReac Severe Anxiety Uncoded 07/23/22 17:13 Assessment & Plan Assessment & Plan (1) PTSD (post-traumatic stress disorder): Status: Acute Code(s): F43.10 - Post-traumatic stress disorder, unspecified Assessment and Plan: changed trazodone to hydroxyzine for sleep 07/18 07/19 adding melatonin (2) Stimulant use disorder: Status: Acute Code(s): F15.90 - Other stimulant use, unspecified, uncomplicated Assessment and Plan: could be fatigued from this as well (3) Alcohol use disorder: Status: Acute Code(s): F19.90 - Other psychoactive substance use, unspecified, uncomplicated Assessment and Plan: awaiting placement Plan 52 yo female, reports stopping meds, relapse with SIBS and increasing SI. Plan: Review of meds, regime restored, allow to take effect. Pt reports, by history this regime as worked well. Collateral contact Diagnostics as needed Pt reports she is not intersted at this time in residential level of care. Continue to discuss. 07/20/22: Continue current regime Decrease of HS hydroxyzine from 50 mg to 25 mg as pt has a hx of vertigo, dizziness, but finds it an effective sleep agent. 07/21 Discontinue hydroxyzine: Feels it is making her nauseous Start clonidine 0.1 mg q.h.s. for trouble sleeping. Increased melatonin to 6 mg at patient's request 07/22/22 Meloxicam 15 mg daily Valproate ER 250 mg HS Discontinue Clonidine Continue melatonin 07/23/22 Trazodone 50 mg HS with 50 mg repeat prn 07/24/22 Continue current regime 07/25/2022 Patient seen chart reviewed case reviewed with treatment team. No change in skin did this time continue discharge planning 07/26/2022 For trazodone increase the bedtime encourage more behavioral activation I spent minutes with the patient and/or on the patient floor today, greater than?50% of which was spent counseling/coordinating care. Reason for contiued inpatient stay Substantial Risk for: inability to function and rapid decompensation
[2022-07-27 06:00] VITALS: BP 130/60; PULSE 82; RESP 18; TEMP 36.8; O2SAT 97
[2022-07-27] MEDS: Omeprazole 20 MG CAPSULE.DR PO (06:50)
[2022-07-27] MEDS: DULoxetine HCl 60 MG CAPSULE.DR PO (10:41)
[2022-07-27] MEDS: buPROPion HCl XL 300 MG TAB.ER.24H PO (10:41)
[2022-07-27] MEDS: Multivitamin TABLET 1 TAB PO (10:41)
[2022-07-27] MEDS: Cholecalciferol (Vitamin D3) 25 MCG TABLET PO (10:41)
[2022-07-27] MEDS: Loratadine 10 MG TABLET PO (10:42)
[2022-07-27] MEDS: Cyanocobalamin (Vitamin B-12) 100 MCG TABLET PO (10:42)
[2022-07-27] MEDS: estradioL 0.5 MG TABLET PO (10:42)
[2022-07-27] MEDS: Ibuprofen 600 MG TABLET PO (10:47)
[2022-07-27 17:14] VITALS: BP 131/98; PULSE 85; TEMP 36.2; O2SAT 97
--- NOTE | 2022-07-27 18:41 | HO.PSYCHPN ---
Subjective Subjective Date of Service: 07/27/22 Reason For Visit: si, bipolar d/o Subjective Notes: Conditional Voluntary Healthcare Proxy: No Guardianship: No Medical Problems Affecting Mental Status: No Interim History: Prepared for discharge to her program for 07/28. Full medication review Pt with no current questions, concerns, symptoms or side effects she reports. Medication Compliance: Yes Side effects from medications: No Attending Groups: Yes Review of Systems Acute medical concerns: No Medical Review of Systems: unchanged Mental Status Exam Mental Status Exam Patient Appearance: Appropriate Patient Orientation: Person, Place, Time and Situation Level of Consciousness: Alert Patient Behavior: Talkative and Good Eye Contact Mood Description: Calm and Appropriate Affect Description: Appropriate Patient Cognition Impaired: No Ability to Follow Directions: Good Speech Pattern: Spontaneous Speech Memory Description: Intact Hallucinations: None Delusions: Not Present Thought Process: Goal Oriented Thought Content: positive for Goal Oriented Judgement: Good Diagnostics Vital Signs (24Hr): Vital Signs - 24 hr 07/27/22 06:00 07/27/22 17:14 Temperature 98.3 F 97.1 F Pulse Rate 82 85 Respiratory Rate 18 Blood Pressure 130/60 131/98 H Pulse Oximetry 97 97 Oxygen Delivery Method Room Air Room Air BMI result Body Mass Index 46.6 Labs Results: 07/16/22 00:21 07/16/22 00:21 Medications Medications Current Medications Acetaminophen (Acetaminophen 325 Mg Tablet) 650 mg PO Q6H PRN PRN Reason: Headache/Pain Mild Scale (1-3) Last Admin: 07/21/22 09:53 Dose: 650 mg Al Hydroxide/Mg Hydroxide (Magnesium Hydrox/Alum Hydrox 30 Ml Oral.Susp) 30 ml PO Q6H PRN PRN Reason: Heartburn/Nausea Albuterol Sulfate (Albuterol Sulfate 90 Mcg 8 Gm Inhaler) 2 puff INHALE RQ6H PRN PRN Reason: wheeze,congestion Bupropion HCl (Bupropion Hcl Xl 300 Mg Tab.Er.24h) 300 mg PO DAILY [facility] Last Admin: 07/27/22 10:41 Dose: 300 mg Cyanocobalamin (Cyanocobalamin (Vitamin B-12) 100 Mcg Tablet) 100 mcg PO DAILY [facility] Last Admin: 07/27/22 10:42 Dose: 100 mcg Divalproex Sodium (Divalproex Sodium Er 250 Mg Tab.Er.24h) 250 mg PO BEDTIME [facility] Last Admin: 07/26/22 22:30 Dose: 250 mg Duloxetine HCl (Duloxetine Hcl 60 Mg Capsule.) 60 mg PO DAILY [facility] Last Admin: 07/27/22 10:41 Dose: 60 mg Estradiol (Estradiol 0.5 Mg Tablet) 0.5 mg PO DAILY [facility] Last Admin: 07/27/22 10:42 Dose: 0.5 mg Ibuprofen (Ibuprofen 600 Mg Tablet) 600 mg PO Q6H PRN PRN Reason: Pain, Moderate (Pain Scale 4-6 Last Admin: 07/27/22 10:47 Dose: 600 mg Loratadine (Loratadine 10 Mg Tablet) 10 mg PO DAILY [facility] Last Admin: 07/27/22 10:42 Dose: 10 mg Magnesium Hydroxide (Milk Of Magnesia 30 Ml Oral.Susp) 30 ml PO DAILY PRN PRN Reason: Constipation Last Admin: 07/25/22 16:57 Dose: 30 ml Melatonin (Melatonin 3 Mg Tablet) 6 mg PO BEDTIME MRX1 [facility] Last Admin: 07/27/22 02:50 Dose: Not Given Multivitamins/Vitamin C (Multivitamin Tablet) 1 tab PO DAILY [facility] Last Admin: 07/27/22 10:41 Dose: 1 tab Naproxen (Naproxen 500 Mg Tablet) 500 mg PO BEDTIME [facility] Last Admin: 07/26/22 22:31 Dose: 500 mg Omeprazole (Omeprazole 20 Mg Capsule.) 20 mg PO DAILY@0630 [facility] Last Admin: 07/27/22 06:50 Dose: 20 mg Pharmacy Consult (Consult Rx Perform Med Rec) 1 each MISCELLANE ONCE PRN PRN Reason: Consult order Polyethylene Glycol (Polyethylene Glycol 3350 17 Gm Powd.Pack) 17 gm PO DAILY [facility] Last Admin: 07/27/22 10:44 Dose: Not Given Trazodone HCl (Trazodone Hcl 50 Mg Tablet) 50 mg PO BEDTIME PRN PRN Reason: after scheduled dose for insomnia Trazodone HCl (Trazodone Hcl 100 Mg Tablet) 100 mg PO BEDTIME [facility] Last Admin: 07/26/22 22:30 Dose: 100 mg Vitamin D (Cholecalciferol (Vitamin D3) 25 Mcg Tablet) 25 mcg PO DAILY [facility] Last Admin: 07/27/22 10:41 Dose: 25 mcg Allergies Allergies Allergy/AdvReac Type Severity Reaction Status Date / Time Penicillins AdvReac Hives Verified 07/15/22 23:52 hydroxyzine AdvReac Severe Anxiety Uncoded 07/23/22 17:13 Assessment & Plan Assessment & Plan (1) PTSD (post-traumatic stress disorder): Status: Acute Code(s): F43.10 - Post-traumatic stress disorder, unspecified Assessment and Plan: changed trazodone to hydroxyzine for sleep 07/18 07/19 adding melatonin (2) Stimulant use disorder: Status: Acute Code(s): F15.90 - Other stimulant use, unspecified, uncomplicated Assessment and Plan: could be fatigued from this as well (3) Alcohol use disorder: Status: Acute Code(s): F19.90 - Other psychoactive substance use, unspecified, uncomplicated Assessment and Plan: awaiting placement Plan 52 yo female, reports stopping meds, relapse with SIBS and increasing SI. Plan: Review of meds, regime restored, allow to take effect. Pt reports, by history this regime as worked well. Collateral contact Diagnostics as needed Pt reports she is not intersted at this time in residential level of care. Continue to discuss. 07/20/22: Continue current regime Decrease of HS hydroxyzine from 50 mg to 25 mg as pt has a hx of vertigo, dizziness, but finds it an effective sleep agent. 07/21 Discontinue hydroxyzine: Feels it is making her nauseous Start clonidine 0.1 mg q.h.s. for trouble sleeping. Increased melatonin to 6 mg at patient's request 07/22/22 Meloxicam 15 mg daily Valproate ER 250 mg HS Discontinue Clonidine Continue melatonin 07/23/22 Trazodone 50 mg HS with 50 mg repeat prn 07/24/22 Continue current regime 07/25/2022 Patient seen chart reviewed case reviewed with treatment team. No change in skin did this time continue discharge planning 07/26/2022 For trazodone increase the bedtime encourage more behavioral activation 07/27/22: Discharge 07/28/22 Continue current plan of care I spent minutes with the patient and/or on the patient floor today, greater than?50% of which was spent counseling/coordinating care. Informed Consent: understands Reason for contiued inpatient stay Substantial Risk for: stable for discharge Time Spent With Patient Time: Total time managing care of this patient today _20___ minutes.
[2022-07-27] MEDS: Milk of Magnesia 30 ML ORAL.SUSP PO (22:01)
[2022-07-27] MEDS: Melatonin 3 MG TABLET 6 MG PO (23:27)
[2022-07-27] MEDS: NaPROXEN 500 MG TABLET PO (23:27)
[2022-07-27] MEDS: Divalproex Sodium ER 250 MG TAB.ER.24H PO (23:28)
[2022-07-27] MEDS: traZODone HCL 100 MG TABLET PO (23:28)
[2022-07-28 08:00] VITALS: BP 122/63; PULSE 84; TEMP 36.4
[2022-07-28] MEDS: polyethylene glycoL 3350 17 GM POWD.PACK PO (08:33)
[2022-07-28] MEDS: DULoxetine HCl 60 MG CAPSULE.DR PO (08:34)
[2022-07-28] MEDS: buPROPion HCl XL 300 MG TAB.ER.24H PO (08:34)
[2022-07-28] MEDS: Omeprazole 20 MG CAPSULE.DR PO (08:34)
[2022-07-28] MEDS: Loratadine 10 MG TABLET PO (08:34)
[2022-07-28] MEDS: Cholecalciferol (Vitamin D3) 25 MCG TABLET PO (08:34)
[2022-07-28] MEDS: estradioL 0.5 MG TABLET PO (08:34)
[2022-07-28] MEDS: Multivitamin TABLET 1 TAB PO (08:34)
[2022-07-28] MEDS: Cyanocobalamin (Vitamin B-12) 100 MCG TABLET PO (08:34)
--- NOTE | 2022-07-28 15:48 | PM.PSYDC ---
DS: Providers Provider Date of Service: 07/28/22 Date of admission: 07/16/22 15:42 Date of discharge: 07/28/22 Primary care physician: WILLIAM Donohue Admitting clinician: Dagmar Natarajan Attending physician on admission: Bernard Mar Attending physician on discharge: Bernard Mar Discharging clinician: Dagmar Natarajan DS: Diagnosis Discharge Diagnosis (1) PTSD (post-traumatic stress disorder): Status: Acute (2) Stimulant use disorder: Status: Acute (3) Alcohol use disorder: Status: Acute DS: Medications Discharge Medications Home Medications: Previous Rx's Medication Instructions Recorded albuterol sulfate 90 mcg/actuation 2 puff inhalation RQ6H PRN 07/27/22 aerosol inhaler (Ventolin HFA) wheeze,congestion #1 inhaler bupropion HCl 300 mg 24 hr tablet, 300 mg PO DAILY #30 tabs 07/27/22 extended release cholecalciferol (vitamin D3) 25 1 cap PO DAILY #30 caps 07/27/22 mcg (1,000 unit) capsule (Vitamin D3) cyanocobalamin (vitamin B-12) 100 100 mcg PO DAILY #30 tabs 07/27/22 mcg tablet (Vitamin B-12) divalproex 250 mg tablet,extended 250 mg PO BEDTIME #30 tabs 07/27/22 release 24 hr duloxetine 60 mg capsule,delayed 1 cap PO DAILY #30 caps 07/27/22 release estradiol 0.5 mg tablet 1 tab PO DAILY #30 tabs 07/27/22 hydroxyzine HCl 25 mg tablet 1 - 2 tab PO Q6H PRN Anxiety #60 07/27/22 tabs ibuprofen 600 mg tablet 1 tab PO TID PRN Pain #90 tabs 07/27/22 loratadine 10 mg tablet 1 tab PO DAILY PRN Anxiety #30 tabs 07/27/22 melatonin 3 mg tablet 6 mg PO BEDTIME MRX1 #60 tabs 07/27/22 multivitamin (Daily-Osmany tablet) 1 tab PO DAILY #30 tabs 07/27/22 omeprazole 20 mg capsule,delayed 20 mg PO DAILY@0630 #30 caps 07/27/22 release polyethylene glycol 3350 17 gram 1 packet PO DAILY #30 ea 07/27/22 oral powder packet trazodone 100 mg tablet 100 mg PO BEDTIME #30 tabs 07/27/22 Mental Status Exam Mental Status Exam Patient Appearance: Appropriate Patient Orientation: Person, Place, Time and Situation Level of Consciousness: Alert Patient Behavior: Talkative and Good Eye Contact Mood Description: Calm and Appropriate Affect Description: Appropriate Patient Cognition Impaired: No Ability to Follow Directions: Good Speech Pattern: Spontaneous Speech Memory Description: Intact Hallucinations: None Delusions: Not Present Thought Process: Goal Oriented Thought Content: positive for Goal Oriented Judgement: Good Data Data Completed and Pending Completed studies during hospitalization [Text1]: 07/21/22 20:25 Urine clean catch - Clean Catch Midstream Urine Culture - Final DS: Summary Hospital Course Hospital Course: Admission to adult psychiatry for exacerbation of symptoms of bipolar disorder, PTSD, alcohol and stimulant use disorder. Bupropion, Depakote and Trazodone were initiated which stabilized symptoms. Ongoing residential treatment was applied for and pt is accepted upon discharge Time spent discussing smoking cessation with patient: 3 to 10 minutes Status at Discharge Functional status at discharge: independent ambulation Overall status at discharge: patient is progressing back to baseline Time Spent with Patient Time attestation: Total time managing care of this patient today ____ minutes. 35 Time spent: Greater than 30 minutes Discharge Plan Discharge Anticipated Discharge Date/Time: 07/28/22 11:44 Patient Disposition: Xfer Inpatient Rehab Fac Discharge Diagnosis: Bipolar Disorder PTSD Stimulant Use Disorder Alcohol Use Disorder Referrals: [facility] ([facility]) [Other] - 07/28/22 11:00 am ([facility] referral for substance use treatment. Patient accepts substance use treatment placement and will attend following discharge from [facility].) Olamide Byrnes PA [Primary Care Provider] - 1 Week (PT. REFUSED F/U APPT.) Discharge Medications: New multivitamin [Daily-Osmany] Tablet 1 tab PO DAILY Qty: 30 1RF cyanocobalamin (vitamin B-12) [Vitamin B-12] 100 mcg Tablet 100 mcg PO DAILY Qty: 30 1RF melatonin 3 mg Tablet 6 mg PO BEDTIME MRX1 Qty: 60 1RF trazodone 100 mg Tablet 100 mg PO BEDTIME Qty: 30 1RF omeprazole 20 mg Capsule,Delayed Release(Dr/Ec) 20 mg PO DAILY@0630 Qty: 30 1RF albuterol sulfate [Ventolin HFA] 90 mcg/actuation Hfa Aerosol Inhaler 2 puff inhalation RQ6H PRN (Reason: wheeze,congestion) Qty: 1 1RF divalproex 250 mg Tablet Extended Release 24 Hr 250 mg PO BEDTIME Qty: 30 1RF bupropion HCl 300 mg Tablet Extended Release 24 Hr 300 mg PO DAILY Qty: 30 1RF Continued polyethylene glycol 3350 17 gram powder in packet 1 packet PO DAILY Qty: 30 1RF hydroxyzine HCl 25 mg tablet 1 - 2 tab PO Q6H PRN (Reason: Anxiety) Qty: 60 1RF estradiol 0.5 mg tablet 1 tab PO DAILY Qty: 30 1RF ibuprofen 600 mg tablet 1 tab PO TID PRN (Reason: Pain) Qty: 90 1RF loratadine 10 mg tablet 1 tab PO DAILY PRN (Reason: Anxiety) Qty: 30 1RF cholecalciferol (vitamin D3) [Vitamin D3] 25 mcg (1,000 unit) capsule 1 cap PO DAILY Qty: 30 1RF duloxetine 60 mg capsule,delayed release(DR/EC) 1 cap PO DAILY Qty: 30 1RF Discharge Orders: Discharge Order (Routine); Ordered 07/28/22 Ordered By: Dagmar Natarajan Diet: Advance to usual diet Activity on Discharge: As tolerated Stand Alone Forms: Patient Portal Discharge page, Community Support Care Plan Goals: Maintain mood and safe behaviors Take medications as directed Practice coping skills Continue with out patient providers Health Concerns: Stable mood and behaviors Plan of Treatment: Follow up with out patient providers Take medications as directed Assessment: Pt interviewed prior to discharge and found to be fully oriented and without any SI/HI. Pt has insight and demonstrates good judgment in terms of wanting to pursue treatment. Pt is not in imminent risk of harm to self or others and has a safety plan that includes presenting to the closest ER or calling 911 if she is feeling unsafe. Pt has been observed closely by the nursing staff throughout admission and has not engaged in any behaviors that suggest dangerousness to self or others and has demonstrated appropriate behaviors and impulse control. Discharge Date/Time: 07/28/22 10:00
== END 2022-07-28 10:00 | DRG 753 ==
LOC: HO.ED 07-16 15:33 → HO.PM5 07-16 15:45
PROVIDERS: Admitting Provider Psychiatry & Neurology Psychiatry; Emergency Provider Internal Medicine; PCP Physician Assistant Medical; Visit Provider Clinical Nurse Specialist Psychiatric/Mental Health, Adult
DX: F31.9 Bipolar disorder, unspecified (principal); R45.851 Suicidal ideations; Z91.14 Patient's other noncompliance with medication regimen; F43.10 Post-traumatic stress disorder, unspecified; F10.10 Alcohol abuse, uncomplicated; F15.10 Other stimulant abuse, uncomplicated; Z20.822 Contact with and (suspected) exposure to COVID-19; Z88.0 Allergy status to penicillin; Z88.8 Allergy status to other drugs, medicaments and biological substances; Z79.899 Other long term (current) drug therapy
CPT/HCPCS: 0241U; 36415; 80053; 80061; 80307; 81003; 82607; 82746; 83036; 83735; 84439; 84443; 85025; 87086; 93005; 99285